=== PATIENT | female | born 1950 | race Caucasian/White ===

== ENCOUNTER → 2023-02-27 | Outpatient (CLI) | payer OTHER ==
[~2023-02-27] MED LIST: BAYER CHEWABLE81 MG PO; FURO40 PO; LISI5; METH10 PO; OLANZAPINE FLU; Oxycodone HCl20 M1 PO; Zanaflex4 MG
== END | disposition home or self-care (01) ==
LOC: LAB 15:13 → LAB SHORT 15:13
DX: N39.0 Urinary tract infection, site not specified (principal)
CPT/HCPCS: 87077; 87086; 87186

== ENCOUNTER 2024-09-26 11:00 | Inpatient (IN) | payer MEDICARE ==
[~2024-09-26] VITALS: Ht 165.1 cm; Wt 98.5 kg
[2024-09-26 11:18] LABS: BASOPHILS ABSOLUTE AUTO 0.07 K/mm3 (0.00-0.23); BASOPHILS PERCENT AUTO 1 % (0-2); EOSINOPHILS ABSOLUTE AUTO 0.22 K/mm3 (0.00-0.68); EOSINOPHILS PERCENT AUTO 2 % (0-6); Hematocrit 43.7 % (33.0-51.0); Hemoglobin 14.3 g/dL (11.5-16.0); IMMATURE GRAN ABSOLUTE AUTO 0.10 K/mm3 (0.00-0.10); IMMATURE GRAN PERCENT AUTO 1 % (0-1); LYMPHOCYTES ABSOLUTE AUTO 2.34 K/mm3 (0.84-5.20); LYMPHOCYTES PERCENT AUTO 18 % (21-46); MONOCYTES ABSOLUTE AUTO 0.83 K/mm3 (0.16-1.47); MONOCYTES PERCENT AUTO 6 % (4-13); Mean Corpuscular HGB Conc 32.7 g/dL (31.5-36.5); Mean Corpuscular Volume 86 fL (80-100); NEUTROPHILS ABSOLUTE AUTO 9.77 K/mm3 (1.96-9.15); NEUTROPHILS PERCENT AUTO 73 % (41-73); NRBC ABSOLUTE 0.00 K/mm3 (0.00-0.02); NRBC Auto 0.0 /100 WBC (0.0-0.2); Platelet Count 387 K/mm3 (150-400); RDW Coefficient Variation 14.5 % (11.7-14.2); RDW Standard Deviation 45.4 fL (35.1-46.3)
[2024-09-26 11:37] LABS: Alanine Aminotransfer (ALT/SGP 13.0 U/L (12-78); Albumin, Blood 3.0 g/dL (3.4-5.0); Albumin/Globulin Ratio 0.6 (0.8-1.8); Anion Gap 11.0 mmol/L (3-11); Aspartate Aminotrans (AST/SGOT 8.0 U/L (12-37); Bilirubin, Total 0.2 mg/dL (0.1-1.0); Blood Urea Nitrogen 10.0 mg/dL (8-24); CO2, Blood 28.0 mmol/L (21-32); Calcium, Blood 8.6 mg/dL (8.5-10.1); Chloride, Blood 101.0 mmol/L (98-108); Creatinine, Blood 0.7 mg/dL (0.40-1.00); Globulin, Blood 5.0 g/dL (2.2-4.0); Glucose, Blood 170.0 mg/dL (70-99); Potassium, Blood 3.6 mmol/L (3.5-5.5); Sodium, Blood 136.0 mmol/L (136-145); Total Protein, Blood 8.0 g/dL (6.4-8.2)
[2024-09-26] MEDS ORDERED: OxyCODONE 5 mg/Acetamin 325 mg TABLET PO ONE (13:20)
[2024-09-26] MEDS ORDERED: NS 1,000 ML IV SCH (13:30)
[2024-09-26] MEDS ORDERED: CefTRIAXone Sodium 1,000 MG in NS 50 ML IV ONE (13:30)
[2024-09-26] MEDS ORDERED: Morphine Sulfate 4 MG/1 ML Injection IV ONE (14:25)
[2024-09-26] MEDS ORDERED: Ipratropium/Albuterol SulF 2.5-0.5MG/3 ML Amp INH ONE (14:25)
[2024-09-26] MEDS ORDERED: Ondansetron HCl 2 MG / ML 2ML Vial IV PRN (15:30)
[2024-09-26] MEDS ORDERED: Metoprolol Tartrate 1 MG/ML 5 ML VIAL IV PRN (17:10)
[2024-09-26] MEDS ORDERED: Ipratropium/Albuterol SulF 2.5-0.5MG/3 ML Amp INH SCH (17:10)
[2024-09-26] MEDS ORDERED: HydrALAZINE HCl 20 MG / ML 1ML Vial IV PRN (17:15)
[2024-09-26 18:27] VITALS: BP 136/88
--- NOTE | 2024-09-26 18:35 | NUR ---
ADMISSION NOTE: PATIENT ARRIVED TO THE UNIT AT 181 VIA GURNEY. WITH ASSISTANCE TRANSFERRED INTO THE RESTROOM AND VOIDED. PATIENT VERY PAINFUL OF R HIP/LEG. PATIENT LABORED BREATHING. 2 L OF O2 IN PLACE. PATIENT SETTLED IN ROOM, IN BED, CALL LIGHT WITHIN REACH, NO SIGNS OR SYMPTOMS OF DISTRESS, PATIENT STATES BREATHING IS THE SAME IT HAS BEEN SINCE BEFORE SHE CAME INTO THE HOSPITAL. PLAN OF CARE ONGOING.
[2024-09-26] MEDS ORDERED: Albuterol 2.5 MG/3 ML VIAL INH PRN (19:10)
[2024-09-26 19:16] VITALS: BP 141/84
[2024-09-26] MEDS ORDERED: Lactobacil 2-S.Thermo-Bifido 1 1 Cap PO SCH (21:00)
[2024-09-26] MEDS ORDERED: IBUP200 PO (22:41)
--- NOTE | 2024-09-26 22:53 | NUR ---
PT HAS BEEN C/O PAIN IN LOWER BACK/RLE 10/19 THAT HAS NOT BEEN RELIEVED. CALLED HOSPITALIST FOR ORDERS FOR IBUPROFEN, WHICH SHE TAKES AT HOME. RECIEVED ORDERS.
[2024-09-26 23:08] VITALS: BP 150/104
[2024-09-27 03:35] VITALS: BP 142/101
[2024-09-27 04:41] LABS: Hematocrit 40.0 % (33.0-51.0); Hemoglobin 13.0 g/dL (11.5-16.0); Mean Corpuscular HGB Conc 32.5 g/dL (31.5-36.5); Mean Corpuscular Volume 88 fL (80-100); NRBC ABSOLUTE 0.00 K/mm3 (0.00-0.02); NRBC Auto 0.0 /100 WBC (0.0-0.2); Platelet Count 373 K/mm3 (150-400); RDW Coefficient Variation 14.4 % (11.7-14.2); RDW Standard Deviation 46.5 fL (35.1-46.3)
[2024-09-27 04:57] LABS: Anion Gap 8.0 mmol/L (3-11); Blood Urea Nitrogen 14.0 mg/dL (8-24); CO2, Blood 28.0 mmol/L (21-32); Calcium, Blood 8.5 mg/dL (8.5-10.1); Chloride, Blood 106.0 mmol/L (98-108); Creatinine, Blood 0.7 mg/dL (0.40-1.00); Glucose, Blood 182.0 mg/dL (70-99); Potassium, Blood 4.3 mmol/L (3.5-5.5); Sodium, Blood 138.0 mmol/L (136-145)
--- NOTE | 2024-09-27 05:58 | NUR ---
SHIFT SUMMARY PT HERE FOR SEPSIS AND PNA. SHE HAS BEEN AOX4, CALM AND COOPERATIVE. SHE HAS BEEN ON 2LNC, W/ 4LNC PRN AT HOME. PT HAS PERIODS OF DYSPNEA AT REST, THAT HAS BEEN EXACERBATED BY HER CHRONIC PAIN. PAIN HAS BEEN MANAGED W/ MEDICATIONS (SEE EMAR), REST, AND REPOSITIONING. PAIN HAS REMAINED 6-8/10 IN LOW BACK, RLE, AND HIPS. PT HAS BEEN 1PA W/ FWW TO BATHROOM, BUT HAS PREFERRED USING BSC, IT DOES NOT REQUIRE HER TO WALK FAR. PT ON TELE, W/ NO EVENTS OVERNIGHT. PT HAS HAD UNEVENTFUL NIGHT.
[2024-09-27 07:15] VITALS: BP 149/111
--- NOTE | 2024-09-27 07:24 | NUR ---
CONTACTED DR. GARCIA THIS MORNING REGARDING PATIENT'S PAIN AND WHAT CAN BE DONE/ORDERED FOR PAIN MANAGEMENT. PATIENT C/O PAIN IN LOWER BACK, R HIP/KNEE/LEG.
[2024-09-27] MEDS ORDERED: Enoxaparin 40 MG/0.4 ML SYR SC SCH (09:00)
[2024-09-27 11:02] VITALS: BP 155/106
[2024-09-27] MEDS ORDERED: CefTRIAXone Sodium 1,000 MG in NS 100 ML IV SCH (12:00)
[2024-09-27 15:33] VITALS: BP 174/97
--- NOTE | 2024-09-27 16:24 | NUR ---
SHIFT SUMMARY: PATIENT ON AND OFF OXYGEN DEPENDING ON HER MOOD. PATIENT LABILE. PAIN LEVEL VARIES ON WHEN STAFF ARE IN ROOM VERSUS OUT OF ROOM. UPSET THAT SHE ISN'T RECEIVING OPIATES OR OTHER PAIN MEDICATIONS OTHER THAN AVAILABLE PER EMAR. PATIENT HAS BEEN INDEPENDENTLY USING THE BEDSIDE COMMODE. SHE IS IN HER BED, ALERT, NO SIGNS OR SYMPTOMS OF DISTRESS, PLAN OF CARE ONGOING.
[2024-09-27 19:12] VITALS: BP 149/112
[2024-09-27 23:00] VITALS: BP 153/129
[2024-09-28] VITALS (7 sets, daily range): BP systolic 151–168; BP diastolic 108–121
[2024-09-28 05:00] LABS: BASOPHILS ABSOLUTE AUTO 0.06 K/mm3 (0.00-0.23); BASOPHILS PERCENT AUTO 1 % (0-2); EOSINOPHILS ABSOLUTE AUTO 0.12 K/mm3 (0.00-0.68); EOSINOPHILS PERCENT AUTO 1 % (0-6); Hematocrit 37.3 % (33.0-51.0); Hemoglobin 12.1 g/dL (11.5-16.0); IMMATURE GRAN ABSOLUTE AUTO 0.09 K/mm3 (0.00-0.10); IMMATURE GRAN PERCENT AUTO 1 % (0-1); LYMPHOCYTES ABSOLUTE AUTO 2.69 K/mm3 (0.84-5.20); LYMPHOCYTES PERCENT AUTO 21 % (21-46); MONOCYTES ABSOLUTE AUTO 0.91 K/mm3 (0.16-1.47); MONOCYTES PERCENT AUTO 7 % (4-13); Mean Corpuscular HGB Conc 32.4 g/dL (31.5-36.5); Mean Corpuscular Volume 87 fL (80-100); NEUTROPHILS ABSOLUTE AUTO 9.18 K/mm3 (1.96-9.15); NEUTROPHILS PERCENT AUTO 70 % (41-73); NRBC ABSOLUTE 0.00 K/mm3 (0.00-0.02); NRBC Auto 0.0 /100 WBC (0.0-0.2); Platelet Count 364 K/mm3 (150-400); RDW Coefficient Variation 14.5 % (11.7-14.2); RDW Standard Deviation 46.3 fL (35.1-46.3)
[2024-09-28 05:15] LABS: Anion Gap 8.0 mmol/L (3-11); Blood Urea Nitrogen 16.0 mg/dL (8-24); CO2, Blood 30.0 mmol/L (21-32); Calcium, Blood 8.6 mg/dL (8.5-10.1); Chloride, Blood 106.0 mmol/L (98-108); Creatinine, Blood 0.72 mg/dL (0.40-1.00); Glucose, Blood 204.0 mg/dL (70-99); Potassium, Blood 3.3 mmol/L (3.5-5.5); Sodium, Blood 141.0 mmol/L (136-145)
--- NOTE | 2024-09-28 07:27 | NUR ---
SHIFT SUMMARY PT HERE FOR PNA. SHE HAS BEEN AOX4, CALM AND COOPERATIVE. SHE HAS BEEN C/O OF CHRONIC PAIN IN LOW BACK, R LEG, AND R HIP. SHE STATES THERE HAS BEEN NO RELIEF FOR IT SO FAR. PT HAS BEEN FRUSTRATED W/ HER PAIN REGIMEN AND HAS LASHED OUT AT STAFF FOR BEING UNABLE TO GET "ANYTHING OTHER THAN TYLENOL." PT HAS BEEN RESTING COMFORATABLY IN BED, AND HAS BEEN ABLE TO PIVOT TO BSC INDEPENDENTLY. SHE HAS BEEN ON TELE, NO EVENTS OVERNIGHT. SHE HAS BEEN ON 2LNC, SATURATING >90%. PT HAD UNEVENTFUL NIGHT.
[2024-09-28] MEDS ORDERED: DULoxetine HCL 30 MG Cap DR PO SCH (09:00)
--- NOTE | 2024-09-28 16:09 | NUR ---
SHIFT SUMMARY PATIENT A/O X4. ABLE TO USE BSC INDEPENDENTLY, SOME INCONTINENCE AT TIMES. CONTINUAL COMPLAINTS OF PAIN, ADRESSED WITH DR GARCIA THIS AM. ONE EPISODE OF VOMITING AFTER BREAKFAST. PATIENT HAVING CONVERSATION WITH SOMEONE ON SPEAKERPHONE, ASKING THEM TO BRING HER "PAIN DROPS FROM THE [employer]" (WHICH IS A [employer]), STATING SHE ISN'T GOING TO TELL STAFF BECAUSE "THEY WON'T LET ME HAVE THEM". THIS RN EDUCATED PATIENT AND PERSON ON PHONE THAT SHE IS NOT ALLOWED ANY SUBSTANCES WHILE ADMITTED AND IS NOT PERMITTED TO TAKE MEDICATIONS WITHOUT DR HENDERSON WHILE ADMITTED, ADVISED PERSON ON PHONE TO NOT BRING HER ANY SUBSTANCES FROM [employer]. WHEN RN LEFT, PATIENT STATED LOUDLY THAT SHE "GOT BUSTED" AND DIDN'T CARE, THAT SHE WOULD TAKE THEM AND JUST NOT TELL US. CHARGE AND AIDE MADE AWARE. ABLE TO MAKE NEEDS KNOWN. CALL LIGHT IN REACH, CARES ONGOING.
--- NOTE | 2024-09-29 03:05 | NUR ---
SHIFT SUMMARY NO ACUTE EVENTS DURING THIS SHIFT. PT C/O 8/0 CHRONIC LOW BACK PAIN, AND RIGHT HIP PAIN. PT REPORT HX FALLING ON THE RIGHT HIP. TELE: SINUS TACH @107. PT DENIES CP/PRESSURE DUROMG THIS SHIFT. PT IS ON RA, O2 SAT'S>95%. MULTIPLE CALLS WITH CALL LIGHT, AND CONTINUING TO MEDICATE THE PAIN PER EMAR DURING THE NIGHT. BED AT THE LOWEST POSITION, CALL LIGHT W/I REACH. PT IS A/O X4, ABLE TO MAKE HER NEEDS KNOWN.
[2024-09-29 03:52] VITALS: BP 149/105
[2024-09-29 05:06] LABS: BASOPHILS ABSOLUTE AUTO 0.04 K/mm3 (0.00-0.23); BASOPHILS PERCENT AUTO 0 % (0-2); EOSINOPHILS ABSOLUTE AUTO 0.02 K/mm3 (0.00-0.68); EOSINOPHILS PERCENT AUTO 0 % (0-6); Hematocrit 44.4 % (33.0-51.0); Hemoglobin 14.5 g/dL (11.5-16.0); IMMATURE GRAN ABSOLUTE AUTO 0.14 K/mm3 (0.00-0.10); IMMATURE GRAN PERCENT AUTO 1 % (0-1); LYMPHOCYTES ABSOLUTE AUTO 2.50 K/mm3 (0.84-5.20); LYMPHOCYTES PERCENT AUTO 14 % (21-46); MONOCYTES ABSOLUTE AUTO 0.89 K/mm3 (0.16-1.47); MONOCYTES PERCENT AUTO 5 % (4-13); Mean Corpuscular HGB Conc 32.7 g/dL (31.5-36.5); Mean Corpuscular Volume 87 fL (80-100); NEUTROPHILS ABSOLUTE AUTO 14.11 K/mm3 (1.96-9.15); NEUTROPHILS PERCENT AUTO 80 % (41-73); NRBC ABSOLUTE 0.00 K/mm3 (0.00-0.02); NRBC Auto 0.0 /100 WBC (0.0-0.2); Platelet Count 453 K/mm3 (150-400); RDW Coefficient Variation 14.7 % (11.7-14.2); RDW Standard Deviation 46.6 fL (35.1-46.3)
[2024-09-29 05:29] LABS: Anion Gap 10.0 mmol/L (3-11); Blood Urea Nitrogen 19.0 mg/dL (8-24); CO2, Blood 27.0 mmol/L (21-32); Calcium, Blood 9.5 mg/dL (8.5-10.1); Chloride, Blood 102.0 mmol/L (98-108); Creatinine, Blood 0.68 mg/dL (0.40-1.00); Glucose, Blood 231.0 mg/dL (70-99); Potassium, Blood 4.0 mmol/L (3.5-5.5); Sodium, Blood 135.0 mmol/L (136-145)
[2024-09-29 07:34] VITALS: BP 150/104
[2024-09-29 09:45] VITALS: BP 148/84
[2024-09-29 10:49] LABS: Anion Gap 9.0 mmol/L (3-11); Blood Urea Nitrogen 19.0 mg/dL (8-24); CO2, Blood 33.0 mmol/L (21-32); Calcium, Blood 9.7 mg/dL (8.5-10.1); Chloride, Blood 98.0 mmol/L (98-108); Creatinine, Blood 0.71 mg/dL (0.40-1.00); Glucose, Blood 177.0 mg/dL (70-99); Potassium, Blood 3.5 mmol/L (3.5-5.5); Sodium, Blood 136.0 mmol/L (136-145)
--- NOTE | 2024-09-29 16:30 | NUR ---
SHIFT SUMMARY PATIENT HAS BEEN REPORTING 10/10 PAIN, NO INTERVENTIONS SEEM TO HELP. NEW ORDER FOR TRAMADOL RECEIVED AND GIVEN WITH NO DECREASE IN REPORTED PAIN. ABLE TO GET UP TO BSC INDEPENDENT TO 1 ASSIST AT TIMES. CALL LIGHT IN REACH, ABLE TO MAKE NEEDS KNOWN.
[2024-09-29 16:38] VITALS: BP 145/109
--- NOTE | 2024-09-29 17:42 | NUR ---
BLOOD PRESSURES MAY NOT REFLECT ACTUAL, PATIENT ENCOURAGED TO BE STILL. WHEN STAFF ENTER ROOM PATIENT BEGINS TO MOAN AND WIGGLE IN BED, WILL NOT LIE STILL FOR VITALS TO BE TAKEN ACCURATELY.
[2024-09-29 19:43] VITALS: BP 136/118
[2024-09-29 19:46] VITALS: BP 143/101
[2024-09-30 02:24] VITALS: BP 137/95
--- NOTE | 2024-09-30 04:38 | NUR ---
SHIFT SUMMARY: PT AOX4 CALLS APPROPRIATELY AND ABLE TO MAKE NEEDS KNOWN. PT CONTINUES TO CALL AND REQUEST PAIN MEDICATIONS/ MUSCLE RELAXERS AND OF CHRONIC PAIN. MEDICATED PER EMR. TOLERATING MEDICATIONS WELL. NO ACUTE OVERNIGHT EVENTS. PT IN BED RESTING, BED IN LOWEST POSITION, CALL LIGHT IN REACH. CONTINUING CARE.
[2024-09-30 05:11] LABS: BASOPHILS ABSOLUTE AUTO 0.09 K/mm3 (0.00-0.23); BASOPHILS PERCENT AUTO 1 % (0-2); EOSINOPHILS ABSOLUTE AUTO 0.19 K/mm3 (0.00-0.68); EOSINOPHILS PERCENT AUTO 1 % (0-6); Hematocrit 44.6 % (33.0-51.0); Hemoglobin 14.6 g/dL (11.5-16.0); IMMATURE GRAN ABSOLUTE AUTO 0.18 K/mm3 (0.00-0.10); IMMATURE GRAN PERCENT AUTO 1 % (0-1); LYMPHOCYTES ABSOLUTE AUTO 3.46 K/mm3 (0.84-5.20); LYMPHOCYTES PERCENT AUTO 18 % (21-46); MONOCYTES ABSOLUTE AUTO 1.54 K/mm3 (0.16-1.47); MONOCYTES PERCENT AUTO 8 % (4-13); Mean Corpuscular HGB Conc 32.7 g/dL (31.5-36.5); Mean Corpuscular Volume 88 fL (80-100); NEUTROPHILS ABSOLUTE AUTO 13.59 K/mm3 (1.96-9.15); NEUTROPHILS PERCENT AUTO 71 % (41-73); NRBC ABSOLUTE 0.00 K/mm3 (0.00-0.02); NRBC Auto 0.0 /100 WBC (0.0-0.2); Platelet Count 409 K/mm3 (150-400); RDW Coefficient Variation 15.0 % (11.7-14.2); RDW Standard Deviation 47.6 fL (35.1-46.3)
[2024-09-30 07:47] VITALS: BP 119/83
[2024-09-30] MEDS ORDERED: Ketorolac Tromethamine 15mg Vial IV PRN (11:50)
[2024-09-30 16:08] VITALS: BP 118/91
--- NOTE | 2024-09-30 18:02 | NUR ---
SHIFT SUMMARY PT CONT LEVEL OF CARE. PT NOTED TO BE A&O X4 AND CALLS APPROPRIATE. PT NOTED TO CONT TO HAVE DIFFICULTY WITH CHRONIC PAIN CONTROL RECEIVED NEW ORDER FOR PRN YUE SEE MAR FOR MORE DETAILS ON PAIN MANAGEMENT AND ADMINISTRATION. PT STARTED TO WORK WITH THERAPY THIS SHIFT. CONT TO UTILIZE OXYGEN.
[2024-09-30 19:39] VITALS: BP 104/84; BP 94/84
--- NOTE | 2024-10-01 01:59 | NUR ---
SHIFT SUMMARY: PT RESTING MOST OF THE NIGHT. MEDICATED PER EMAR. NO ACUTE CHANGES THIS SHIFT. BED IN LOWEST POSITION AND CALL LIGHT IN REACH.
[2024-10-01 04:29] VITALS: BP 130/83
[2024-10-01 05:22] LABS: BASOPHILS ABSOLUTE AUTO 0.06 K/mm3 (0.00-0.23); BASOPHILS PERCENT AUTO 0 % (0-2); EOSINOPHILS ABSOLUTE AUTO 0.26 K/mm3 (0.00-0.68); EOSINOPHILS PERCENT AUTO 1 % (0-6); Hematocrit 44.4 % (33.0-51.0); Hemoglobin 14.2 g/dL (11.5-16.0); IMMATURE GRAN ABSOLUTE AUTO 0.24 K/mm3 (0.00-0.10); IMMATURE GRAN PERCENT AUTO 1 % (0-1); LYMPHOCYTES ABSOLUTE AUTO 4.22 K/mm3 (0.84-5.20); LYMPHOCYTES PERCENT AUTO 21 % (21-46); MONOCYTES ABSOLUTE AUTO 1.58 K/mm3 (0.16-1.47); MONOCYTES PERCENT AUTO 8 % (4-13); Mean Corpuscular HGB Conc 32.0 g/dL (31.5-36.5); Mean Corpuscular Volume 90 fL (80-100); NEUTROPHILS ABSOLUTE AUTO 14.14 K/mm3 (1.96-9.15); NEUTROPHILS PERCENT AUTO 69 % (41-73); NRBC ABSOLUTE 0.00 K/mm3 (0.00-0.02); NRBC Auto 0.0 /100 WBC (0.0-0.2); Platelet Count 399 K/mm3 (150-400); RDW Coefficient Variation 15.1 % (11.7-14.2); RDW Standard Deviation 49.4 fL (35.1-46.3)
[2024-10-01 05:41] LABS: Anion Gap 7.0 mmol/L (3-11); Blood Urea Nitrogen 42.0 mg/dL (8-24); CO2, Blood 30.0 mmol/L (21-32); Calcium, Blood 9.0 mg/dL (8.5-10.1); Chloride, Blood 102.0 mmol/L (98-108); Creatinine, Blood 0.9 mg/dL (0.40-1.00); Glucose, Blood 148.0 mg/dL (70-99); Potassium, Blood 3.8 mmol/L (3.5-5.5); Sodium, Blood 135.0 mmol/L (136-145)
[2024-10-01 07:29] VITALS: BP 136/103
[2024-10-01] MEDS ORDERED: Doxycycline Hyclate 100 MG in Dextrose 5% 250 ML IV SCH (16:00)
[2024-10-01 16:42] VITALS: BP 133/91
[2024-10-01 19:35] VITALS: BP 132/93
--- NOTE | 2024-10-01 19:44 | NUR ---
SHIFT SUMMARY- PT ALERT AND ORIENTED X3. SHE IS A 1P SBA TO THE BATHROOM OR BSC. PT IV WAS LEAKING AFTER IV ABX WERE STARTED AND NEW IV WAS PLACED. PT WORKED WITH THERAPIES AND N REPEAT CHEST XR WAS DONE. DR RHODES (PULMONOLOGY) CAME TO SEE THE PT FOR A NEW CONSULT TODAY AND OREDERED NEW LABS. PT AWARE A SPUTUM AND A URINE SAMPLE ARE NEEDED, PASSED ON TO NIGHT RN IN BEDSIDE REPORT. PT IN BED, CALL LIGHT IN REACH NO S&S OF DDISTRESS NOTED AT THE TIME OF SHIFT CHANGE.
--- NOTE | 2024-10-02 02:37 | NUR ---
SHIFT SUMMARY: PT RESTING THROUGH OUT SHIFT. MEDICATED PER EMAR. NO ACUTE CHANGES DURING THIS SHIFT.
[2024-10-02 03:56] VITALS: BP 125/91
[2024-10-02 05:11] LABS: BASOPHILS ABSOLUTE AUTO 0.09 K/mm3 (0.00-0.23); BASOPHILS PERCENT AUTO 1 % (0-2); EOSINOPHILS ABSOLUTE AUTO 0.26 K/mm3 (0.00-0.68); EOSINOPHILS PERCENT AUTO 2 % (0-6); Hematocrit 40.9 % (33.0-51.0); Hemoglobin 13.0 g/dL (11.5-16.0); IMMATURE GRAN ABSOLUTE AUTO 0.22 K/mm3 (0.00-0.10); IMMATURE GRAN PERCENT AUTO 1 % (0-1); LYMPHOCYTES ABSOLUTE AUTO 3.80 K/mm3 (0.84-5.20); LYMPHOCYTES PERCENT AUTO 21 % (21-46); MONOCYTES ABSOLUTE AUTO 1.23 K/mm3 (0.16-1.47); MONOCYTES PERCENT AUTO 7 % (4-13); Mean Corpuscular HGB Conc 31.8 g/dL (31.5-36.5); Mean Corpuscular Volume 88 fL (80-100); NEUTROPHILS ABSOLUTE AUTO 12.20 K/mm3 (1.96-9.15); NEUTROPHILS PERCENT AUTO 69 % (41-73); NRBC ABSOLUTE 0.00 K/mm3 (0.00-0.02); NRBC Auto 0.0 /100 WBC (0.0-0.2); Platelet Count 374 K/mm3 (150-400); RDW Coefficient Variation 14.9 % (11.7-14.2); RDW Standard Deviation 48.3 fL (35.1-46.3)
[2024-10-02 05:22] LABS: Anion Gap 7.0 mmol/L (3-11); Blood Urea Nitrogen 32.0 mg/dL (8-24); CO2, Blood 28.0 mmol/L (21-32); Calcium, Blood 8.4 mg/dL (8.5-10.1); Chloride, Blood 104.0 mmol/L (98-108); Creatinine, Blood 0.66 mg/dL (0.40-1.00); Glucose, Blood 153.0 mg/dL (70-99); Potassium, Blood 4.2 mmol/L (3.5-5.5); Sodium, Blood 135.0 mmol/L (136-145)
[2024-10-02 07:37] VITALS: BP 136/88
[2024-10-02 10:54] VITALS: BP 135/83
--- NOTE | 2024-10-02 17:43 | NUR ---
SHIFT SUMMARY- PT ALERT AND ORIENTED, SHE CAN GET CRAANKY, IF THERE ARE ANY BEEPS FROM THE PUMP 1 MINUTE OR 1 HOUR MAKES NO DIFFERENCE WITH HOW MAD SHE GETS. THE PO STEROIDS SEEM TO BE CAUSEING SOME EXTREME SNACKING. AT ONE POINT SHE ASKED FOR ICECREAM, SHERBERT, KEM CRACKERS, AND POP TARTS. PT HAS BEEN MEDICATED FOR PAIN T/O THJE SHIFT. SHE GETS ANGRY WHEN STAFF ARE NOT THERE WITH THE PAIN MEDS WHEN SHE WANTS THEM TO BE, AAND STATES THEY ARE 45 MINUTES LATE OR 1 HOUR LATE. THIS RN EXPLAINED THAT THESE ARE PRN MEDS SO SHE HAS TO REQUEST THEM FOR STAFF TO BRING THEM, AND SHE CAN NOT REQUEST THEM 4 HOURS BEFORE THEY ARE AVAILABLE AND EXPECT THE STAFF TO REMEMBER. SHE WAS AGREEABLE AND SHE WILL TRY TO REMEMBER TO REQUEST THEM A SECOND TIME AFTER THEY ARE AVAILABLE. PT MEDICATED WITH PO TRAMADOL AND TYLENOL AT 1745. SHE IS CURRENTLY SITTING UP IN BED EATING SNACKS. PLAN IS FOR SNF AT [facility]. IV WENT BAD AGAIN TODAY PG WAS PLACED THAT DRAWS. NO CURRENT S&S OF DISTRESS NOTED.
[2024-10-02 19:28] VITALS: BP 121/73
[2024-10-03 04:00] VITALS: BP 115/73
[2024-10-03 04:57] LABS: BASOPHILS ABSOLUTE AUTO 0.09 K/mm3 (0.00-0.23); BASOPHILS PERCENT AUTO 1 % (0-2); EOSINOPHILS ABSOLUTE AUTO 0.26 K/mm3 (0.00-0.68); EOSINOPHILS PERCENT AUTO 1 % (0-6); Hematocrit 38.0 % (33.0-51.0); Hemoglobin 11.8 g/dL (11.5-16.0); IMMATURE GRAN ABSOLUTE AUTO 0.30 K/mm3 (0.00-0.10); IMMATURE GRAN PERCENT AUTO 2 % (0-1); LYMPHOCYTES ABSOLUTE AUTO 4.10 K/mm3 (0.84-5.20); LYMPHOCYTES PERCENT AUTO 22 % (21-46); MONOCYTES ABSOLUTE AUTO 1.19 K/mm3 (0.16-1.47); MONOCYTES PERCENT AUTO 6 % (4-13); Mean Corpuscular HGB Conc 31.1 g/dL (31.5-36.5); Mean Corpuscular Volume 90 fL (80-100); NEUTROPHILS ABSOLUTE AUTO 12.91 K/mm3 (1.96-9.15); NEUTROPHILS PERCENT AUTO 68 % (41-73); NRBC ABSOLUTE 0.00 K/mm3 (0.00-0.02); NRBC Auto 0.0 /100 WBC (0.0-0.2); Platelet Count 357 K/mm3 (150-400); RDW Coefficient Variation 14.8 % (11.7-14.2); RDW Standard Deviation 48.3 fL (35.1-46.3)
[2024-10-03 05:19] LABS: Anion Gap 7.0 mmol/L (3-11); Blood Urea Nitrogen 30.0 mg/dL (8-24); CO2, Blood 27.0 mmol/L (21-32); Calcium, Blood 8.2 mg/dL (8.5-10.1); Chloride, Blood 104.0 mmol/L (98-108); Creatinine, Blood 0.62 mg/dL (0.40-1.00); Glucose, Blood 253.0 mg/dL (70-99); Potassium, Blood 4.2 mmol/L (3.5-5.5); Sodium, Blood 134.0 mmol/L (136-145)
--- NOTE | 2024-10-03 06:24 | NUR ---
SHIFT SUMMARY PT SLEPT INTERMITTENTLY DURING THE NIGHT. C/O CONTINUED PAIN TO LOW BACK, HIPS, AND KNEES. MEDICATED PER EMAR. PT REMAINED ON ROOM AIR. OOB TO BSC WITH 1 MIN ASSIST. IV ANTIBIOTICS CONTINUE PER ORDER.
[2024-10-03 07:57] VITALS: BP 119/86
[2024-10-03] MEDS ORDERED: NS 250 ML IV PRN (10:25)
[2024-10-03] MEDS ORDERED: Ipratropium/Albuterol SulF 2.5-0.5MG/3 ML Amp INH SCH (16:00)
[2024-10-03] MEDS ORDERED: Insulin Regular 100 UNIT/ML 10ML Vial SC SCH (16:30)
[2024-10-03 17:12] VITALS: BP 149/109
[2024-10-03 18:10] VITALS: BP 131/85
--- NOTE | 2024-10-03 18:49 | NUR ---
SHIFT SUMMARY PT A&OX4. PT ADMITTED DUE TO CHEST PAIN/WEAKNESS/SOB. PT REPORTS NO CHEST PAIN. PT REPORTS WEAKNESS AND SOB. UNABLE TO COLLECT SPUTUM SAMPLE. PT REPORTS "UNABLE TO COUGH STUFF UP." VSS. PT REPORTS PAIN, PAIN MANAGED PER EMAR. THIS RN NOTICED TRENDS OF GLUCOSE. REPORTED TO DR RAMIREZ, MORNING GLUCOSE WITH LABS WAS ABOVE 200, PT GETTING STEROIDS. DR. RAMIREZ ORDERED ACHS CBG, WITH SLIDING SCALE INSULIN. PT GOT CHEST PHYSIOTHERAPY TODAY. RESPIRATORY TREATMENTS GIVEN TO PT BY RESPIRATORY THERAPY, PT WORKED WITH PHYSICAL THERAPY TODAY AND IS A ONE ASSIST TO BSC. PT IN BED, BED IN LOWEST POSITION, CALL LIGHT IN REACH. PLAN IS SNF POST DISCHARGE.
--- NOTE | 2024-10-03 18:57 | NUR ---
NOTE REPORTED PT CHEST XRAY RESULTS TO DR RAMIREZ.
[2024-10-03 20:05] VITALS: BP 99/80
[2024-10-04 04:23] VITALS: BP 116/73
[2024-10-04 05:03] LABS: BASOPHILS ABSOLUTE AUTO 0.10 K/mm3 (0.00-0.23); BASOPHILS PERCENT AUTO 1 % (0-2); EOSINOPHILS ABSOLUTE AUTO 0.28 K/mm3 (0.00-0.68); EOSINOPHILS PERCENT AUTO 1 % (0-6); Hematocrit 40.1 % (33.0-51.0); Hemoglobin 12.5 g/dL (11.5-16.0); IMMATURE GRAN ABSOLUTE AUTO 0.45 K/mm3 (0.00-0.10); IMMATURE GRAN PERCENT AUTO 2 % (0-1); LYMPHOCYTES ABSOLUTE AUTO 4.89 K/mm3 (0.84-5.20); LYMPHOCYTES PERCENT AUTO 23 % (21-46); MONOCYTES ABSOLUTE AUTO 1.35 K/mm3 (0.16-1.47); MONOCYTES PERCENT AUTO 6 % (4-13); Mean Corpuscular HGB Conc 31.2 g/dL (31.5-36.5); Mean Corpuscular Volume 89 fL (80-100); NEUTROPHILS ABSOLUTE AUTO 14.11 K/mm3 (1.96-9.15); NEUTROPHILS PERCENT AUTO 67 % (41-73); NRBC ABSOLUTE 0.00 K/mm3 (0.00-0.02); NRBC Auto 0.0 /100 WBC (0.0-0.2); Platelet Count 429 K/mm3 (150-400); RDW Coefficient Variation 14.9 % (11.7-14.2); RDW Standard Deviation 48.7 fL (35.1-46.3)
[2024-10-04 05:25] LABS: Anion Gap 4.0 mmol/L (3-11); Blood Urea Nitrogen 31.0 mg/dL (8-24); CO2, Blood 32.0 mmol/L (21-32); Calcium, Blood 8.8 mg/dL (8.5-10.1); Chloride, Blood 102.0 mmol/L (98-108); Creatinine, Blood 0.73 mg/dL (0.40-1.00); Glucose, Blood 130.0 mg/dL (70-99); Potassium, Blood 4.2 mmol/L (3.5-5.5); Sodium, Blood 134.0 mmol/L (136-145)
--- NOTE | 2024-10-04 05:30 | NUR ---
SHIFT SUMMARY NOC PT A/O X 4. PLEASANT AND COOPERATIVE WITH CARE. PT HAD SOFTER THAN NORMAL BP AT BEGINNING OF SHIFT 99/80 WITH MAP (86). AM BP IMPROVED TO 118/73. WBC TRENDING UP OVER PAST 2 DAYS NOW AT 21.18. PT CHRONIC PAIN SYNDROME BEING MANAGED PER EMAR WELL IV ABX. PT REMAINED ON RA T/O SHIFT AND SPO2 >92%. PT AWAITING SNF PLACEMENT WITH REFERRAL SENT TO [facility]. PT CURRENTLY RESTING WITH BED IN LOWEST POSITION, AND CALL LIGHT WITHIN REACH.
[2024-10-04 08:04] VITALS: BP 117/78
[2024-10-04 13:43] LABS: Acinetobacter baumannii DNA Not Detected copy/mL (NOT DETECT); Chlamydia pneumonia Not Detected (NOT DETECT); Enterobacter cloacae DNA Not Detected copy/mL (NOT DETECT); Escherichia coli DNA Not Detected copy/mL (NOT DETECT); Haemophilus influenzae DNA Not Detected copy/mL (NOT DETECT); Human Coronavirus RNA Not Detected (NOT DETECT); Human Metapneumovirus RNA Not Detected (NOT DETECT); Influenza virus A RNA Not Detected (NOT DETECT); Influenza virus B RNA Not Detected (NOT DETECT); Klebsiella aerogenes DNA Not Detected copy/mL (NOT DETECT); Klebsiella oxytoca DNA Not Detected copy/mL (NOT DETECT); Klebsiella pneumoniae DNA Not Detected copy/mL (NOT DETECT); Moraxella catarrhalis DNA Not Detected copy/mL (NOT DETECT); Proteus sp DNA Not Detected copy/mL (NOT DETECT); Pseudomonas aeruginosa DNA Not Detected copy/mL (NOT DETECT); Respiratory syncytial Vir RNA Not Detected (NOT DETECT); Rhinovirus+Enterovirus RNA Not Detected (NOT DETECT); Serratia marcescens DNA Not Detected copy/mL (NOT DETECT); Staphylococcus aureus DNA Not Detected copy/mL (NOT DETECT); Streptococcus agalactiae DNA Not Detected copy/mL (NOT DETECT); Streptococcus pneumoniae DNA Not Detected copy/mL (NOT DETECT); Streptococcus pyogenes DNA Not Detected copy/mL (NOT DETECT)
--- NOTE | 2024-10-04 18:19 | NUR ---
End of shift summary: Patient is alert and oriented x4; pleasant and cooperative with care. Patient with chronic pain to back and requests medications every 6 hours; medicated per EMAR. Patient denies CP, N/V/D, but does have continued SOB d/t pneumonia. Patient continues to be seen and treated by Respiratory Therapy. Patient up to BSC independently today. All medications administered per EMAR. Patient utilizing call light appropriately; call light within reach and bed in lowest position. Will continue to monitor until next shift nurse arrives and report given.
[2024-10-04 19:38] VITALS: BP 115/76
[2024-10-05 03:58] VITALS: BP 113/73
[2024-10-05 04:58] LABS: BASOPHILS ABSOLUTE AUTO 0.10 K/mm3 (0.00-0.23); BASOPHILS PERCENT AUTO 1 % (0-2); EOSINOPHILS ABSOLUTE AUTO 0.25 K/mm3 (0.00-0.68); EOSINOPHILS PERCENT AUTO 1 % (0-6); Hematocrit 36.7 % (33.0-51.0); Hemoglobin 11.7 g/dL (11.5-16.0); IMMATURE GRAN ABSOLUTE AUTO 0.64 K/mm3 (0.00-0.10); IMMATURE GRAN PERCENT AUTO 3 % (0-1); LYMPHOCYTES ABSOLUTE AUTO 5.45 K/mm3 (0.84-5.20); LYMPHOCYTES PERCENT AUTO 26 % (21-46); MONOCYTES ABSOLUTE AUTO 1.48 K/mm3 (0.16-1.47); MONOCYTES PERCENT AUTO 7 % (4-13); Mean Corpuscular HGB Conc 31.9 g/dL (31.5-36.5); Mean Corpuscular Volume 89 fL (80-100); NEUTROPHILS ABSOLUTE AUTO 12.99 K/mm3 (1.96-9.15); NEUTROPHILS PERCENT AUTO 62 % (41-73); NRBC ABSOLUTE 0.00 K/mm3 (0.00-0.02); NRBC Auto 0.0 /100 WBC (0.0-0.2); Platelet Count 384 K/mm3 (150-400); RDW Coefficient Variation 15.3 % (11.7-14.2); RDW Standard Deviation 49.7 fL (35.1-46.3)
[2024-10-05 05:20] LABS: Anion Gap 7.0 mmol/L (3-11); Blood Urea Nitrogen 30.0 mg/dL (8-24); CO2, Blood 28.0 mmol/L (21-32); Calcium, Blood 8.4 mg/dL (8.5-10.1); Chloride, Blood 102.0 mmol/L (98-108); Creatinine, Blood 0.62 mg/dL (0.40-1.00); Glucose, Blood 161.0 mg/dL (70-99); Potassium, Blood 4.4 mmol/L (3.5-5.5); Sodium, Blood 133.0 mmol/L (136-145)
--- NOTE | 2024-10-05 05:36 | NUR ---
SHIFT SUMMARY NOC PT A/O X 4. PLEASANT AND COOPERATIVE WITH CARE. HS CBG 236 NO COVERAGE ORDERED HS. PT STILL HAVING C/O OF DYSPNEA WITH AMBULATION AND RECEIVING BREATHING TX PER EMAR. PT ALSO ENDORES SEVERE R HIP PAIN AND HAS CONCERNS OF POSSIBLE FX AND IS WANTING IMAGING TO BE DONE. PT RECEIVING IV ABX PER EMAR, WBC 20.91 THIS AM TRENDING BACK DOWN. POWERGLICE IN KELLY DOES NOT DRAW. PT AWAITING SNF PLACEMENT AT [facility] UPON APPROVAL. PT CURRENTLY RESTING WITH BED IN LOWEST POSITION, AND CALL LIGHT WITHIN REACH.
[2024-10-05 07:40] VITALS: BP 131/85
[2024-10-05 15:49] VITALS: BP 103/65
--- NOTE | 2024-10-05 17:45 | NUR ---
End of shift summary: Patient is alert and oriented x4; pleasant and cooperative with care. Patient with x-ray to right hip completed today per discussion with doctor. Patient with continued pain today and medications administered per EMAR; new order obtained for additional pain control. Patient denied CP, N/V/D but with continued SOB and has been receiving respiratory treatments with good results. Patient utilizing call light appropriately; call light within reach and bed in lowest position. Will continue to monitor until next shift nurse arrives and report is given.
[2024-10-05 18:59] VITALS: BP 104/69
[2024-10-06 04:35] VITALS: BP 113/76
[2024-10-06 05:00] LABS: Hematocrit 38.1 % (33.0-51.0); Hemoglobin 12.3 g/dL (11.5-16.0); Mean Corpuscular HGB Conc 32.3 g/dL (31.5-36.5); Mean Corpuscular Volume 89 fL (80-100); NRBC ABSOLUTE 0.00 K/mm3 (0.00-0.02); NRBC Auto 0.0 /100 WBC (0.0-0.2); Platelet Count 375 K/mm3 (150-400); RDW Coefficient Variation 15.5 % (11.7-14.2); RDW Standard Deviation 50.1 fL (35.1-46.3)
[2024-10-06 05:16] LABS: Anion Gap 7.0 mmol/L (3-11); Blood Urea Nitrogen 27.0 mg/dL (8-24); CO2, Blood 30.0 mmol/L (21-32); Calcium, Blood 8.6 mg/dL (8.5-10.1); Chloride, Blood 101.0 mmol/L (98-108); Creatinine, Blood 0.68 mg/dL (0.40-1.00); Glucose, Blood 122.0 mg/dL (70-99); Potassium, Blood 4.5 mmol/L (3.5-5.5); Sodium, Blood 133.0 mmol/L (136-145)
--- NOTE | 2024-10-06 05:33 | NUR ---
SHIFT SUMMARY NOC PT A/O X 4. PLEASANT AND COOPERATIVE WITH CARE. VSS. HS CBG 155 WITH NO HS COVERAGE IN PLACE. CHRONIC PAIN SYNROME/ANXIETY BEING MANAGED PER EMAR. IV ABX PER EMAR, WBC 21.67 TRENDING BACK UP AGAIN THIS AM. POWERGLIDE IN KELLY DOES NOT DRAW. PT STILL ENDORSING SOB WITH AMBULATION, BUT REPORTS THAT IT LESS SEVERE THAN PREVIOUS DAY. PT AWAITING SNF PLACEMENT @ [facility]. PT CURRENTLY RESTING WITH BED IN LOWEST POSITION, AND CALL LIGHT WITHIN REACH.
--- NOTE | 2024-10-06 05:33 | NUR ---
SHIFT SUMMARY NOC PT A/O X 4. LABILE AT TIMES, BUT COOPERATIVE WITH CARE. VSS. NO ACUTE CHANGES TO REPORT. PT GENERALIZED PAIN BEING MANAGED PER EMAR. WOUND DRESSING ON L FOOT CHANGED THIS MORNING AND C/D/I. PT HAD BM AT BEGINNING OF SHIFT. PT IN PROCESS OF FINDING CARE HOME AND SETTING UP OUT PATIENT WOUND CARE, WELL SNF PLACEMENT FOR [facility]. PT CURRENTLY RESTING WITH BED IN LOWEST POSITION, AND CALL LIGHT WITHIN REACH.
[2024-10-06 05:48] LABS: BAND PERCENT MAN 1 % (0-8); BASOPHILS ABSOLUTE MAN 0.43 K/mm3 (0.00-0.23); BASOPHILS PERCENT MAN 2 % (0-2); EOSINOPHILS ABSOLUTE MAN 0.86 K/mm3 (0.00-0.68); EOSINOPHILS PERCENT MAN 4 % (0-6); LYMPHOCYTES % ATYPICAL MANUAL 1 % (0-0); LYMPHOCYTES ABSOLUTE MAN 5.41 K/mm3 (0.84-5.20); LYMPHOCYTES PERCENT MAN 24 % (21-46); METAMYELOCYTE ABSOLUTE MAN 0.21 K/mm3 (0.00-0.00); METAMYELOCYTE PERCENT MAN 1 % (0-0); MONOCYTES ABSOLUTE MAN 1.51 K/mm3 (0.16-1.47); MONOCYTES PERCENT MAN 7 % (4-13); MYELOCYTE ABSOLUTE MAN 0.21 K/mm3 (0.00-0.00); MYELOCYTE PERCENT MAN 1 % (0-0); NEUTROPHILS ABSOLUTE MAN 13.00 K/mm3 (1.96-9.15); SEG NEUTROPHILS PERCENT MAN 59 % (41-73)
[2024-10-06 07:45] VITALS: BP 113/79
[2024-10-06] MEDS ORDERED: Lidocaine 4% 1 Patch TOP SCH (13:35)
[2024-10-06 16:31] VITALS: BP 123/82
--- NOTE | 2024-10-06 17:16 | NUR ---
DAY SUMMARY A&OX4, ANXIOUS, MEDICATED PER MAR FOR PAIN, STATES THE MEDS ARE NOT COVERING PAIN, LIDOCAINE PATCH ADDED THIS SHIFT, REFUSED PT & OT THIS SHIFT, CONTINUES TO [id number] SBA TO BSC, VSS, WILL CONT TO MONITOR.
[2024-10-06 20:50] VITALS: BP 97/81
[2024-10-07 04:29] VITALS: BP 91/64
[2024-10-07 05:04] LABS: BASOPHILS ABSOLUTE AUTO 0.12 K/mm3 (0.00-0.23); BASOPHILS PERCENT AUTO 1 % (0-2); EOSINOPHILS ABSOLUTE AUTO 0.46 K/mm3 (0.00-0.68); EOSINOPHILS PERCENT AUTO 2 % (0-6); Hematocrit 37.9 % (33.0-51.0); Hemoglobin 12.0 g/dL (11.5-16.0); IMMATURE GRAN ABSOLUTE AUTO 0.91 K/mm3 (0.00-0.10); IMMATURE GRAN PERCENT AUTO 4 % (0-1); LYMPHOCYTES ABSOLUTE AUTO 4.73 K/mm3 (0.84-5.20); LYMPHOCYTES PERCENT AUTO 22 % (21-46); MONOCYTES ABSOLUTE AUTO 1.58 K/mm3 (0.16-1.47); MONOCYTES PERCENT AUTO 7 % (4-13); Mean Corpuscular HGB Conc 31.7 g/dL (31.5-36.5); Mean Corpuscular Volume 89 fL (80-100); NEUTROPHILS ABSOLUTE AUTO 13.88 K/mm3 (1.96-9.15); NEUTROPHILS PERCENT AUTO 64 % (41-73); NRBC ABSOLUTE 0.00 K/mm3 (0.00-0.02); NRBC Auto 0.0 /100 WBC (0.0-0.2); Platelet Count 383 K/mm3 (150-400); RDW Coefficient Variation 15.4 % (11.7-14.2); RDW Standard Deviation 49.8 fL (35.1-46.3)
[2024-10-07 05:34] LABS: Anion Gap 7.0 mmol/L (3-11); Blood Urea Nitrogen 21.0 mg/dL (8-24); CO2, Blood 28.0 mmol/L (21-32); Calcium, Blood 8.8 mg/dL (8.5-10.1); Chloride, Blood 100.0 mmol/L (98-108); Creatinine, Blood 0.71 mg/dL (0.40-1.00); Glucose, Blood 243.0 mg/dL (70-99); Potassium, Blood 4.4 mmol/L (3.5-5.5); Sodium, Blood 131.0 mmol/L (136-145)
--- NOTE | 2024-10-07 06:22 | NUR ---
SHIFT SUMMARY PT HERE FOR LOWER LOBE PNA. SHE HAS BEEN AOX4, CALM AND COOPERATIVE. SHE CALLS APPROPRIATELY. SHE [place] BE[place] [facility] [place] HAS C/O PAIN IN R HIP, BACK, AND LEGS, WHICH HAS BEEN RELIEVED W/ REST, REPOSITIONING, AND MEDICATIONS. OTHER THAN PAIN, PT HAS HAD NO COMPLAINTS. SHE HAD UNEVENTFUL EVENING.
[2024-10-07 06:28] VITALS: BP 121/90
[2024-10-07 07:57] VITALS: BP 126/81
--- NOTE | 2024-10-07 11:45 | NUR ---
ASSUMED CARE A/O X 4, PLEASENT AND TALKATIVE. PAIN TO RIGHT LOWER SIDE TREATED PER MAR, ONE PERSON ASSIST TO CHAIR, PT DID VERY WELL AND WILL CALL IF NEEDING ASSISTANCE.
[2024-10-07 16:49] VITALS: BP 117/75
[2024-10-07 20:03] VITALS: BP 105/74
--- NOTE | 2024-10-07 22:16 | NUR ---
PT RETURNED FROM XRAY AT THIS TIME.
[2024-10-08 04:07] VITALS: BP 118/72
[2024-10-08 04:52] LABS: BASOPHILS ABSOLUTE AUTO 0.12 K/mm3 (0.00-0.23); BASOPHILS PERCENT AUTO 1 % (0-2); EOSINOPHILS ABSOLUTE AUTO 0.42 K/mm3 (0.00-0.68); EOSINOPHILS PERCENT AUTO 2 % (0-6); Hematocrit 36.1 % (33.0-51.0); Hemoglobin 11.5 g/dL (11.5-16.0); IMMATURE GRAN ABSOLUTE AUTO 0.90 K/mm3 (0.00-0.10); IMMATURE GRAN PERCENT AUTO 5 % (0-1); LYMPHOCYTES ABSOLUTE AUTO 3.16 K/mm3 (0.84-5.20); LYMPHOCYTES PERCENT AUTO 17 % (21-46); MONOCYTES ABSOLUTE AUTO 1.47 K/mm3 (0.16-1.47); MONOCYTES PERCENT AUTO 8 % (4-13); Mean Corpuscular HGB Conc 31.9 g/dL (31.5-36.5); Mean Corpuscular Volume 89 fL (80-100); NEUTROPHILS ABSOLUTE AUTO 12.07 K/mm3 (1.96-9.15); NEUTROPHILS PERCENT AUTO 67 % (41-73); NRBC ABSOLUTE 0.00 K/mm3 (0.00-0.02); NRBC Auto 0.0 /100 WBC (0.0-0.2); Platelet Count 368 K/mm3 (150-400); RDW Coefficient Variation 15.5 % (11.7-14.2); RDW Standard Deviation 50.6 fL (35.1-46.3)
[2024-10-08 05:18] LABS: Anion Gap 7.0 mmol/L (3-11); Blood Urea Nitrogen 20.0 mg/dL (8-24); CO2, Blood 30.0 mmol/L (21-32); Calcium, Blood 8.5 mg/dL (8.5-10.1); Chloride, Blood 100.0 mmol/L (98-108); Creatinine, Blood 0.72 mg/dL (0.40-1.00); Glucose, Blood 160.0 mg/dL (70-99); Potassium, Blood 4.8 mmol/L (3.5-5.5); Sodium, Blood 132.0 mmol/L (136-145)
--- NOTE | 2024-10-08 05:30 | NUR ---
SHIFT SUMMARY PT IS ALERT AND ORIENTED TIMES 4. PT IS FULL CODE. PT ADMITTED FOR RIGHT SIDED MID AND LOWER LOBE PNEUMONIA. PT HAS RIGHT UPPER POWER GLIDE THAT DOES NOT DRAW.TAKES MEDICATION WHOLE WITH WATER. PT IS SBA TO BEDSIDE COMMODE.. PT ABLE TO MAKE NEEDS KNOWN. PT APPEARED TO SLEEP ON AND OFF THROUGH THE NIGHT. BED IS IN LOW POSITION, RAILS TIMES TWO, AND CALL LIGHT WITHIN REACH.
[2024-10-08 07:30] VITALS: BP 123/77
[2024-10-08 08:32] VITALS: BP 119/83
[2024-10-08] MEDS ORDERED: AMOCLA875 PO (16:48)
[2024-10-08] MEDS ORDERED: DULO30 PO (16:49)
[2024-10-08] MEDS ORDERED: MELO7.5 PO (16:49)
[2024-10-08] MEDS ORDERED: Nicoderm Cq1 EAC1 TOP (16:50)
[2024-10-08] MEDS ORDERED: OMEP20ER PO (16:50)
[2024-10-08] MEDS ORDERED: Ventolin5 MG/1 ML INH (16:52)
[2024-10-08] MEDS ORDERED: VISBIOME 112.51 EACH PO (16:53)
--- NOTE | 2024-10-08 17:57 | NUR ---
DISCHARGE SUMMARY: PT EDUCATION PROVIDED. PT UNRECEPTIVE TO EDUCATION. PT POWERGLIDE PULLED BY CINDY DIEGO. PT WHEELED DOWN TO CAR BY CHILD DEVELOPMENT INSTRUCTOR IN WHEELCHAIR. PT BELONGINGS ALL PACKED UP AND SENT WITH PT.
== END 2024-10-08 17:52 | disposition home health service (06) | DRG 871 ==
LOC: ER 11:00 → MEDS 15:27
PROVIDERS: Emergency Medicine; Family Medicine; Internal Medicine; Internal Medicine Critical Care Medicine; ADMIT Internal Medicine
DX: A41.9 Sepsis, unspecified organism (principal); J18.9 Pneumonia, unspecified organism; J44.1 Chronic obstructive pulmonary disease with (acute) exacerbation; J44.0 Chronic obstructive pulmonary disease with (acute) lower respiratory infection; I50.32 Chronic diastolic (congestive) heart failure; F03.93 Unspecified dementia, unspecified severity, with mood disturbance; F03.94 Unspecified dementia, unspecified severity, with anxiety; G89.4 Chronic pain syndrome; M16.11 Unilateral primary osteoarthritis, right hip; J43.9 Emphysema, unspecified; I11.0 Hypertensive heart disease with heart failure; F17.210 Nicotine dependence, cigarettes, uncomplicated; R73.9 Hyperglycemia, unspecified; Z71.6 Tobacco abuse counseling; Z79.82 Long term (current) use of aspirin; Z98.1 Arthrodesis status
CPT/HCPCS: 0528U; 36415; 71045; 71046; 71260; 73502; 80048; 80053; 82947; 83036; 83605; 84145; 84484; 85025; 85027; 87040; 87449; 93005; 93010; 94640; 94664; 94667; 94668; 94760; 94761; 96365; 96375; 97110; 97112; 97116; 97161; 97165; 97530; 97535; 99285-25; A9270; C1751; J0360; J0456; J0696; J1815; J1885; J2270; J2919; J7030; J7050; J7060; J7512; Q9967

== ENCOUNTER 2024-12-02 15:28 | Inpatient (IN) | payer MEDICARE ==
[~2024-12-02] VITALS: Ht 167.6 cm; Wt 111.3 kg
[~2024-12-02 15:28] MED LIST changes: +AMOCLA875 PO; +DULO30 PO; +IBUP200 PO; +MELO7.5 PO; +Nicoderm Cq1 EAC1 TOP; +OMEP20ER PO; +VISBIOME 112.51 EACH PO; +Ventolin5 MG/1 ML INH
[2024-12-02 16:11] LABS: BASOPHILS ABSOLUTE AUTO 0.10 K/mm3 (0.00-0.23); BASOPHILS PERCENT AUTO 1 % (0-2); EOSINOPHILS ABSOLUTE AUTO 0.34 K/mm3 (0.00-0.68); EOSINOPHILS PERCENT AUTO 2 % (0-6); Hematocrit 37.3 % (33.0-51.0); Hemoglobin 11.2 g/dL (11.5-16.0); IMMATURE GRAN ABSOLUTE AUTO 0.12 K/mm3 (0.00-0.10); IMMATURE GRAN PERCENT AUTO 1 % (0-1); LYMPHOCYTES ABSOLUTE AUTO 3.21 K/mm3 (0.84-5.20); LYMPHOCYTES PERCENT AUTO 20 % (21-46); MONOCYTES ABSOLUTE AUTO 1.30 K/mm3 (0.16-1.47); MONOCYTES PERCENT AUTO 8 % (4-13); Mean Corpuscular HGB Conc 30.0 g/dL (31.5-36.5); Mean Corpuscular Volume 92 fL (80-100); NEUTROPHILS ABSOLUTE AUTO 10.88 K/mm3 (1.96-9.15); NEUTROPHILS PERCENT AUTO 68 % (41-73); NRBC ABSOLUTE 0.00 K/mm3 (0.00-0.02); NRBC Auto 0.0 /100 WBC (0.0-0.2); Platelet Count 464 K/mm3 (150-400); RDW Coefficient Variation 15.0 % (11.7-14.2); RDW Standard Deviation 50.1 fL (35.1-46.3)
[2024-12-02 16:37] LABS: Alanine Aminotransfer (ALT/SGP 15.0 U/L (12-78); Albumin, Blood 3.0 g/dL (3.4-5.0); Albumin/Globulin Ratio 0.6 (0.8-1.8); Anion Gap 6.0 mmol/L (3-11); Aspartate Aminotrans (AST/SGOT 10.0 U/L (12-37); Bilirubin, Total 0.2 mg/dL (0.1-1.0); Blood Urea Nitrogen 28.0 mg/dL (8-24); CO2, Blood 33.0 mmol/L (21-32); Calcium, Blood 9.1 mg/dL (8.5-10.1); Chloride, Blood 100.0 mmol/L (98-108); Creatinine, Blood 0.88 mg/dL (0.40-1.00); Globulin, Blood 4.7 g/dL (2.2-4.0); Glucose, Blood 105.0 mg/dL (70-99); Potassium, Blood 4.2 mmol/L (3.5-5.5); Sodium, Blood 135.0 mmol/L (136-145); Total Protein, Blood 7.7 g/dL (6.4-8.2)
[2024-12-02 16:59] LABS: Influenza A, PCR NEGATIVE (NEGATIVE); Influenza B, PCR NEGATIVE (NEGATIVE); Resp Syncytial Virus, PCR NEGATIVE (NEGATIVE); SARS-Cov-2 (COVID-19) PCR, MMC NEGATIVE (NEGATIVE)
[2024-12-02] MEDS ORDERED: CefTRIAXone Sodium 1,000 MG in NS 50 ML IV ONE (17:15)
[2024-12-02] MEDS ORDERED: Ipratropium/Albuterol SulF 2.5-0.5MG/3 ML Amp INH SCH (19:45)
[2024-12-02] MEDS ORDERED: Ondansetron HCl 2 MG / ML 2ML Vial IV PRN (19:45)
[2024-12-02] MEDS ORDERED: Albuterol 2.5 MG/3 ML VIAL INH PRN (19:45)
[2024-12-02] MEDS ORDERED: OxyCODONE 5 mg/Acetamin 325 mg TABLET PO PRN (19:50)
[2024-12-02] MEDS ORDERED: FLU VACC TS2025(65UP)/MF59C/PF 45 MCG/0.5 ML SYRINGE IM SCH (20:00)
[2024-12-02] MEDS ORDERED: FentaNYL Citrate 50 MCG/ML 2 ML Injection IV ONE (20:00)
[2024-12-02] MEDS ORDERED: Lactobacil 2-S.Thermo-Bifido 1 1 Cap PO SCH (21:00)
[2024-12-02] MEDS ORDERED: OLANZAPINE-FLU1 EAC8 (21:19)
[2024-12-02] MEDS ORDERED: Aspir 8181 MG PO (21:20)
[2024-12-02] MEDS ORDERED: DULO30 PO (21:21)
[2024-12-02] MEDS ORDERED: LISI20 PO (21:21)
[2024-12-02] MEDS ORDERED: AMOX-CLAV 875-1 EAC1 PO (21:22)
[2024-12-02] MEDS ORDERED: MELO7.5 PO (21:22)
[2024-12-02] MEDS ORDERED: OMEP20ER PO (21:23)
[2024-12-02] MEDS ORDERED: Nicoderm Cq1 EAC1 TOP (21:23)
[2024-12-02] MEDS ORDERED: VISBIOME 112.51 EACH PO (21:25)
[2024-12-02 21:41] VITALS: BP 118/104
--- NOTE | 2024-12-02 22:25 | NUR ---
ADMIT NOTE HANDOFF RECEIVED FROM MARKETING PROJECT COORDINATOR DORA. PT ARRIVED TO FLOOR VIA [place] [place]. PERSONAL POSSESSIONS WITH PT. PT ORIENTED TO UNIT. CALL BUTTON WITHIN REACH. TELEMETRY IN PLACE: TACHY @ 100 BPM. 6 LPM O2 VIA NC. SHE WILL BE NPO @ 12 AM.
[2024-12-02] MEDS ORDERED: NS 250 ML IV PRN (23:20)
[2024-12-03] MEDS ORDERED: Ampicillin Sod/Sulbactam Sod 3 GM in NS 100 ML IV SCH
[2024-12-03] MEDS ORDERED: FentaNYL Citrate 50 MCG/ML 2 ML Injection IV PRN (00:50)
[2024-12-03 01:10] VITALS: BP 90/64
[2024-12-03 01:18] VITALS: BP 139/90
--- NOTE | 2024-12-03 03:42 | NUR ---
SHIFT SUMMARY ADMITTED THIS SHIFT FOR DYSPNEA. FULL CODE. IV ANTIB RX ARE SCHEDULED. SHE IS ON 6 LPM O2, 5 LPM O2 IS BASELINE. PUREWICK IN PLACE. TELEMETRY: NSR @ 94 BPM. REGULAR DIET. CHRONIC PAIN SYNDROME IS NOTED. PULMONOLOGY CONSULT IS CARMELO COUGHLIN. 1 ASSIST W/FWW - BSC. RECENT ADMIT ONE MONTH AGO FOR PNEUMONIA, LUNG MASS ALSO NOTED. A&O X3, FORGETFUL AND IMPULSIVE AT TIMES.
[2024-12-03 05:07] LABS: Hematocrit 35.0 % (33.0-51.0); Hemoglobin 10.5 g/dL (11.5-16.0); Mean Corpuscular HGB Conc 30.0 g/dL (31.5-36.5); Mean Corpuscular Volume 92 fL (80-100); NRBC ABSOLUTE 0.00 K/mm3 (0.00-0.02); NRBC Auto 0.0 /100 WBC (0.0-0.2); Platelet Count 388 K/mm3 (150-400); RDW Coefficient Variation 15.2 % (11.7-14.2); RDW Standard Deviation 51.5 fL (35.1-46.3)
[2024-12-03 05:22] LABS: Prothrombin Time Results 11.1 Sec (9.7-11.5)
[2024-12-03 05:41] LABS: Anion Gap 8.0 mmol/L (3-11); Blood Urea Nitrogen 30.0 mg/dL (8-24); CO2, Blood 31.0 mmol/L (21-32); Calcium, Blood 8.5 mg/dL (8.5-10.1); Chloride, Blood 101.0 mmol/L (98-108); Creatinine, Blood 0.86 mg/dL (0.40-1.00); Glucose, Blood 143.0 mg/dL (70-99); Potassium, Blood 4.5 mmol/L (3.5-5.5); Sodium, Blood 135.0 mmol/L (136-145)
[2024-12-03 07:37] VITALS: BP 117/73
[2024-12-03] MEDS ORDERED: DULoxetine HCL 30 MG Cap DR PO SCH (09:00)
[2024-12-03] MEDS ORDERED: Enoxaparin 40 MG/0.4 ML SYR SC SCH (09:00)
[2024-12-03 15:09] VITALS: BP 131/86
--- NOTE | 2024-12-03 18:32 | NUR ---
SHIFT SUMMARY PATIENT ALERT AND INTERACTIVE BUT CONFUSED AT TIMES. PATIENT FOUND FREQUENTLY TO HAVE O2 OFF AND CONTINUOUS BIOX. PATIENT ALSO PULLED IV OUT AT START OF SHIFT BECAUSE SHE DID NOT REALIZE WHAT IT WAS. PATIENT HAVING HEADACHE MOST OF THE DAY MEDICATED PER MAY. DR RHODES CONSULTED AND WANTS COPD TO BE STABILIZED BEFORE DOING ANY PROCEDURES. WOULD LIKE TO BIOPSY LUNG MASS WHEN PATIENT STABLE. FAMILY UPDATED OF PLAN.
[2024-12-03 20:12] VITALS: BP 145/86
[2024-12-03 23:17] VITALS: BP 120/107
[2024-12-04 04:07] VITALS: BP 118/70
--- NOTE | 2024-12-04 04:56 | NUR ---
SHIFT SUMMARY; PATIENT SLEPT IN VERY SHORT INTERVALS, O2 AT 10L THRU HUMIDFIED NC. BY MORNING SHE SEEMS TO BE STAYING DOWN BETTER, USING PUREWICK TO CONTROL URINE IS WORKING TO KEEP HER CALMER. REQUEST TO CHANGE NICOTINE PATCH, HAD TO CALL FOR NEW ORDER.SATS UP TO 97% WHEN ASLEEP. TELE SR 81.
[2024-12-04 08:27] VITALS: BP 118/72
[2024-12-04 11:21] VITALS: BP 107/67
[2024-12-04 14:39] VITALS: BP 137/83
[2024-12-04 19:38] VITALS: BP 110/75
--- NOTE | 2024-12-04 20:02 | NUR ---
SHIFT SUMMARY PATIENT ALERT AND INTERACTIVE BUT CONFUSED AT TIMES AND IMPULSIVE. PATIENT RESTLESS AND ANXIOUS. PATIENT HAVING DIFICULTY GETTING COMFORTABLE. PATIENT MEDICATED FOR ANXIETY AND PAIN PER MAR. O2 CONTINUES TO BE TITRATED DOWN. PATIENT CURRENTLY ON 6L/NC. PATIENT MUCH CALMER AT END OF SHIFT. PATIENT INCONTINENT, ATTENDS AND PUREWICK IN USE.
[2024-12-05 03:02] VITALS: BP 126/82
--- NOTE | 2024-12-05 03:14 | NUR ---
PT SUMMARY: PT IS A0X4 AND ABLE TO MAKE NEEDS KNOWN. PT VOIDS FREQUENTLY AND BECOMES SOB WITH ANY EXCERETION. PUREWIC IN PLACE FOR THAT. PT ON 6 L O2. CONTINOUS PULSE IN PLACE WELL. PT MEDICATED FOR ANXIETY TWICE THIS SHIFT AND MEDICATED FOR PAIN TWICE WELL.
[2024-12-05] MEDS ORDERED: HYDROmorphone HCl/Pf 1MG SYR IV ONE (05:10)
[2024-12-05 05:23] LABS: BASOPHILS ABSOLUTE AUTO 0.05 K/mm3 (0.00-0.23); BASOPHILS PERCENT AUTO 0 % (0-2); EOSINOPHILS ABSOLUTE AUTO 0.07 K/mm3 (0.00-0.68); EOSINOPHILS PERCENT AUTO 1 % (0-6); Hematocrit 32.8 % (33.0-51.0); Hemoglobin 9.9 g/dL (11.5-16.0); IMMATURE GRAN ABSOLUTE AUTO 0.10 K/mm3 (0.00-0.10); IMMATURE GRAN PERCENT AUTO 1 % (0-1); LYMPHOCYTES ABSOLUTE AUTO 1.89 K/mm3 (0.84-5.20); LYMPHOCYTES PERCENT AUTO 15 % (21-46); MONOCYTES ABSOLUTE AUTO 1.13 K/mm3 (0.16-1.47); MONOCYTES PERCENT AUTO 9 % (4-13); Mean Corpuscular HGB Conc 30.2 g/dL (31.5-36.5); Mean Corpuscular Volume 91 fL (80-100); NEUTROPHILS ABSOLUTE AUTO 9.77 K/mm3 (1.96-9.15); NEUTROPHILS PERCENT AUTO 75 % (41-73); NRBC ABSOLUTE 0.00 K/mm3 (0.00-0.02); NRBC Auto 0.0 /100 WBC (0.0-0.2); Platelet Count 379 K/mm3 (150-400); RDW Coefficient Variation 14.5 % (11.7-14.2); RDW Standard Deviation 48.7 fL (35.1-46.3)
[2024-12-05 06:29] LABS: Alanine Aminotransfer (ALT/SGP 14.0 U/L (12-78); Albumin, Blood 2.9 g/dL (3.4-5.0); Albumin/Globulin Ratio 0.7 (0.8-1.8); Anion Gap 5.0 mmol/L (3-11); Aspartate Aminotrans (AST/SGOT 8.0 U/L (12-37); Bilirubin, Total 0.2 mg/dL (0.1-1.0); Blood Urea Nitrogen 22.0 mg/dL (8-24); CO2, Blood 36.0 mmol/L (21-32); Calcium, Blood 8.5 mg/dL (8.5-10.1); Chloride, Blood 95.0 mmol/L (98-108); Creatinine, Blood 0.61 mg/dL (0.40-1.00); Globulin, Blood 4.0 g/dL (2.2-4.0); Glucose, Blood 167.0 mg/dL (70-99); Magnesium, Blood 2.0 mg/dL (1.6-2.4); Phosphorus, Blood 3.0 mg/dL (2.5-4.9); Potassium, Blood 4.1 mmol/L (3.5-5.5); Sodium, Blood 132.0 mmol/L (136-145); Thyroid Stimulating Hormone 0.961 uIU/mL (0.360-4.800); Total Protein, Blood 6.9 g/dL (6.4-8.2)
[2024-12-05 07:11] VITALS: BP 143/92
--- NOTE | 2024-12-05 14:03 | NUR ---
PATIENT WAS TRANSFERRED TO [facility] VIA [facility]. AND RETURNED 13 MINUTES LATER. NO ACUTE CHANGES IN CONDITION NOTED.
[2024-12-05 14:15] VITALS: BP 118/86
[2024-12-05] MEDS ORDERED: HYDROmorphone HCl/Pf 1MG SYR IV PRN (17:30)
--- NOTE | 2024-12-05 19:23 | NUR ---
SHIFT SUMMARY PATIENT LETHARGIC ALTHOUGH INTERACTIVE WHEN IN THE ROOM. CHEST XRAY WAS PERFORMED TODAY AWAITING RESULTS. SPEECH CONSULT MADE DUE TO PATIENT VOMITING AND COUGHING WHILE EATING. PATIENT COMPLAINED OF A HEADACHE THROUGHOUT THE DAY, TYLENOL GIVEN PER EMAR. BED ALARM IS ON, BED IS IN LOWEST POSITION FOR SAFETY. CALL LIGHT IS WITHIN REACH.
[2024-12-05 20:04] VITALS: BP 133/77
[2024-12-06 04:18] VITALS: BP 127/68
--- NOTE | 2024-12-06 07:11 | NUR ---
SHIFT SUMMARY: Pt admitted for dyspnea and is a full code. Is alert and able to make needs known. ADLs have been 1-2 depending on activity. Pain has been managed with PRN medications.
[2024-12-06 07:45] VITALS: BP 127/67
[2024-12-06 08:33] LABS: BASOPHILS ABSOLUTE AUTO 0.05 K/mm3 (0.00-0.23); BASOPHILS PERCENT AUTO 0 % (0-2); EOSINOPHILS ABSOLUTE AUTO 0.03 K/mm3 (0.00-0.68); EOSINOPHILS PERCENT AUTO 0 % (0-6); Hematocrit 34.2 % (33.0-51.0); Hemoglobin 10.5 g/dL (11.5-16.0); IMMATURE GRAN ABSOLUTE AUTO 0.12 K/mm3 (0.00-0.10); IMMATURE GRAN PERCENT AUTO 1 % (0-1); LYMPHOCYTES ABSOLUTE AUTO 1.22 K/mm3 (0.84-5.20); LYMPHOCYTES PERCENT AUTO 8 % (21-46); MONOCYTES ABSOLUTE AUTO 1.24 K/mm3 (0.16-1.47); MONOCYTES PERCENT AUTO 8 % (4-13); Mean Corpuscular HGB Conc 30.7 g/dL (31.5-36.5); Mean Corpuscular Volume 92 fL (80-100); NEUTROPHILS ABSOLUTE AUTO 12.73 K/mm3 (1.96-9.15); NEUTROPHILS PERCENT AUTO 83 % (41-73); NRBC ABSOLUTE 0.00 K/mm3 (0.00-0.02); NRBC Auto 0.0 /100 WBC (0.0-0.2); Platelet Count 351 K/mm3 (150-400); RDW Coefficient Variation 14.6 % (11.7-14.2); RDW Standard Deviation 49.2 fL (35.1-46.3)
[2024-12-06 09:00] LABS: Albumin, Blood 3.0 g/dL (3.4-5.0); Anion Gap 5 mmol/L (3-11); Blood Urea Nitrogen 23 mg/dL (8-24); CO2, Blood 41 mmol/L (21-32); Calcium, Blood 9.1 mg/dL (8.5-10.1); Chloride, Blood 91 mmol/L (98-108); Creatinine, Blood 0.58 mg/dL (0.40-1.00); Glucose, Blood 173 mg/dL (70-99); Phosphorus, Blood 3.2 mg/dL (2.5-4.9); Potassium, Blood 4.5 mmol/L (3.5-5.5); Sodium, Blood 132 mmol/L (136-145)
[2024-12-06 15:19] VITALS: BP 138/94
[2024-12-06 16:04] VITALS: BP 125/77
--- NOTE | 2024-12-06 16:37 | NUR ---
SHIFT SUMMARY/TRANSFER UNABLE TO ASSESS ORIENTATION DUE TO PAIN MEDICATION ALTERING LOC, PT DAZED, CAN HARDLY KEEP EYES OPEN. COOPERATIVE. ON 8L O2 CURRENLTY MAINTAINING APPROX 94%. LUNGS SOUND COURSE AND DIMINISHED. PURE WICK IN PLACE. PER REPORT, TOLERATES ALL MEDICATIONS. BED IN LOWEST POSITION, CALL LIGHT WITHIN REACH.
[2024-12-06 20:48] VITALS: BP 118/75
[2024-12-07 04:03] VITALS: BP 141/83
[2024-12-07 06:06] LABS: BASOPHILS ABSOLUTE AUTO 0.04 K/mm3 (0.00-0.23); BASOPHILS PERCENT AUTO 0 % (0-2); EOSINOPHILS ABSOLUTE AUTO 0.07 K/mm3 (0.00-0.68); EOSINOPHILS PERCENT AUTO 0 % (0-6); Hematocrit 35.2 % (33.0-51.0); Hemoglobin 10.6 g/dL (11.5-16.0); IMMATURE GRAN ABSOLUTE AUTO 0.10 K/mm3 (0.00-0.10); IMMATURE GRAN PERCENT AUTO 1 % (0-1); LYMPHOCYTES ABSOLUTE AUTO 2.10 K/mm3 (0.84-5.20); LYMPHOCYTES PERCENT AUTO 12 % (21-46); MONOCYTES ABSOLUTE AUTO 1.78 K/mm3 (0.16-1.47); MONOCYTES PERCENT AUTO 11 % (4-13); Mean Corpuscular HGB Conc 30.1 g/dL (31.5-36.5); Mean Corpuscular Volume 91 fL (80-100); NEUTROPHILS ABSOLUTE AUTO 12.83 K/mm3 (1.96-9.15); NEUTROPHILS PERCENT AUTO 76 % (41-73); NRBC ABSOLUTE 0.00 K/mm3 (0.00-0.02); NRBC Auto 0.0 /100 WBC (0.0-0.2); Platelet Count 382 K/mm3 (150-400); RDW Coefficient Variation 14.5 % (11.7-14.2); RDW Standard Deviation 48.8 fL (35.1-46.3)
--- NOTE | 2024-12-07 06:18 | NUR ---
SHIFT SUMMARY PT IS ALERT AND ORIENTED TIMES SELF . PT IS FULL CODE. PT ADMITTED FOR DYSPNEA. PT HAS RT FOREARM IV THAT FLUSHES. PT IS ON 6L O2. PT HAS PUREWICKING SYSTEM IN PLACE. HX OF COPD, ANXIETY DISORDER, CHRONIC PAIN DISORDER, HTN,HLD. PT HAS LUNG CANCER WITH LARGE MASS IN RIGHT UPPER LOBE. PT IS COOPERATIVE WITH CARE AND ABLE TO MAKE NEEDS KNOWN. BED IS AT LOW POSITION, RAILS TIMES TWO, AND CALL LIGHT WITHIN REACH.
[2024-12-07 06:39] LABS: Albumin, Blood 3.1 g/dL (3.4-5.0); Anion Gap 3 mmol/L (3-11); Blood Urea Nitrogen 26 mg/dL (8-24); CO2, Blood 41 mmol/L (21-32); Calcium, Blood 9.3 mg/dL (8.5-10.1); Chloride, Blood 90 mmol/L (98-108); Creatinine, Blood 0.51 mg/dL (0.40-1.00); Glucose, Blood 130 mg/dL (70-99); Phosphorus, Blood 3.0 mg/dL (2.5-4.9); Potassium, Blood 4.4 mmol/L (3.5-5.5); Sodium, Blood 130 mmol/L (136-145)
[2024-12-07 07:24] VITALS: BP 124/70
--- NOTE | 2024-12-07 10:15 | NUR ---
IN TO SEE PATIENT DECREASED O2TO 5 LITERS.VERY MD WILL DO BIOPSY OF LUNG TOMORROW. SATS ARE NOW92 TO 94 % ON 5 LITERS.
[2024-12-07 11:30] LABS: pH Blood Venous 7.36 (7.34-7.37)
[2024-12-07 13:08] VITALS: BP 147/90
--- NOTE | 2024-12-07 13:39 | NUR ---
PHYSICIAN CONTACT PT REPORTING SUDDEN ONSET OF 7-8/10 PAIN OF HER LEFT ARM FROM THE ELBOW TO THE HAND. DENIES CP/PRESSURE/SOB. DR. LIRA NOTIFIED AND ORDERED TO GIVE TYLENOL IF NOT GIVEN ALREADY. TYLENOL NOT DUE. 0.5 MG OF IV DILADID GIVEN FOR PAIN.
[2024-12-07 14:52] VITALS: BP 130/87
--- NOTE | 2024-12-07 16:03 | NUR ---
SHIFT SUMMARY PT AOX4, COOPERATIVE, ABLE TO MAKE NEEDS KNOWN. PT IS ON 5-8L O2 DEPENDING ON NEEDS. 2 PERSON ASSIST TO RECLINER. UTILIZING PURE WICK CATHETER FOR INCONTINENCE. COMPLAINTS OF PAIN IN BUE, MEDICATING PER EMAR NECESSARY. TOLERATING MEDICATIONS. PT DOES SEEM TO BE SENSITIVE TO NARCOTICS. PT WAS BARELY ABLE TO HOLD EYES OPEN WITH .5MG DILAUDID, CORPORATE RISK ANALYST AWARE, WILL PASS OFF IN REPORT. BED IN LOWEST POSITION, CALL LIGHT WITHIN REACH. LUNG BIOPSY SUPPOSED TO TAKE PLACE TOMORROW.
[2024-12-07] MEDS ORDERED: HYDROmorphone HCl/Pf 1MG SYR IV PRN (17:50)
[2024-12-07 20:29] VITALS: BP 142/90
[2024-12-08 04:30] VITALS: BP 152/89
[2024-12-08 05:51] LABS: BASOPHILS ABSOLUTE AUTO 0.06 K/mm3 (0.00-0.23); BASOPHILS PERCENT AUTO 0 % (0-2); EOSINOPHILS ABSOLUTE AUTO 0.12 K/mm3 (0.00-0.68); EOSINOPHILS PERCENT AUTO 1 % (0-6); Hematocrit 36.4 % (33.0-51.0); Hemoglobin 11.1 g/dL (11.5-16.0); IMMATURE GRAN ABSOLUTE AUTO 0.12 K/mm3 (0.00-0.10); IMMATURE GRAN PERCENT AUTO 1 % (0-1); LYMPHOCYTES ABSOLUTE AUTO 1.88 K/mm3 (0.84-5.20); LYMPHOCYTES PERCENT AUTO 10 % (21-46); MONOCYTES ABSOLUTE AUTO 1.58 K/mm3 (0.16-1.47); MONOCYTES PERCENT AUTO 8 % (4-13); Mean Corpuscular HGB Conc 30.5 g/dL (31.5-36.5); Mean Corpuscular Volume 90 fL (80-100); NEUTROPHILS ABSOLUTE AUTO 15.39 K/mm3 (1.96-9.15); NEUTROPHILS PERCENT AUTO 80 % (41-73); NRBC ABSOLUTE 0.00 K/mm3 (0.00-0.02); NRBC Auto 0.0 /100 WBC (0.0-0.2); Platelet Count 382 K/mm3 (150-400); RDW Coefficient Variation 14.2 % (11.7-14.2); RDW Standard Deviation 46.9 fL (35.1-46.3)
[2024-12-08 06:18] LABS: Albumin, Blood 3.1 g/dL (3.4-5.0); Anion Gap 5 mmol/L (3-11); Blood Urea Nitrogen 18 mg/dL (8-24); CO2, Blood 41 mmol/L (21-32); Calcium, Blood 9.3 mg/dL (8.5-10.1); Chloride, Blood 87 mmol/L (98-108); Creatinine, Blood 0.55 mg/dL (0.40-1.00); Glucose, Blood 180 mg/dL (70-99); Phosphorus, Blood 2.1 mg/dL (2.5-4.9); Potassium, Blood 3.4 mmol/L (3.5-5.5); Sodium, Blood 130 mmol/L (136-145)
[2024-12-08 07:20] VITALS: BP 151/101
[2024-12-08 15:49] VITALS: BP 143/84
--- NOTE | 2024-12-08 18:36 | NUR ---
SHIFT SUMMARY PT IS A/OX3, CONFUSION TO CURRENT SITUTION AT TIMES. IMPULSIVE, REDIRECTABLE, BED/CHAIR ALARM ON. PT IS OFTEN RESTLESS AND WANTING TO MOVE FORM BED TO CHAIR/CHAIR TO BED FREQUENTLY. ON 10L ON CONT PULSE OX. SATS >90%, WITH FREQUENT DESATS WHEN AMBULATING. 1-2 PERSON ASSIST TO BSC/CHAIR. LUNG BIOPSY SCHEDULED FOR TOMORROW AFTERNOON. PT TO BE NPO @ 0800 ON 12/08/24 AND HOLD LOVENOX MORNING OF 12/08/24. PT IS COOPERATIVE WITH CARE AND CALLS APPROPRIATELY USING THE CALL LIGHT.
[2024-12-08 20:06] VITALS: BP 157/97
[2024-12-08] MEDS ORDERED: Potassium Chl 20MEQ/Water100ML 100 ML IV ONE (21:00)
[2024-12-08] MEDS ORDERED: Potassium Chloride 10 Meq Tablet SA PO ONE (21:00)
[2024-12-09 02:48] VITALS: BP 154/92
--- NOTE | 2024-12-09 04:12 | NUR ---
SHIFT SUMMARY 74 YR F ADMITTED ON 12/03/24. FULL CODE. NO ACUTE CHANGES THIS SHIFT. PT IS RESTLESS AND C/O PAIN IN HER NECK AND BACK. MEDICATED PER EMAR. CALLS APPROPRIATELY FOR ASSISTANCE TO BSC. PT WAS ABLE TO SLEEP OFF AND ON BUT USUALLY IT WAS RIGHT AFTER RECEIVING PAIN MEDS. PLAN IS FOR A LUNG BIOPSY TODAY SO LOVENOX WILL BE HELD AND PT WILL BE NPO @ 0800 PER ORDER. BED IS IN LOW POSITION WITH ALARM ON AND CALL LIGHT IS IN REACH. PT IS VERY PLEASANT AND COOPERATIVE WITH THE EXCEPTION OF BEING IMPULSIVE AT TIMES.
[2024-12-09 06:31] LABS: BASOPHILS ABSOLUTE AUTO 0.05 K/mm3 (0.00-0.23); BASOPHILS PERCENT AUTO 0 % (0-2); EOSINOPHILS ABSOLUTE AUTO 0.13 K/mm3 (0.00-0.68); EOSINOPHILS PERCENT AUTO 1 % (0-6); Hematocrit 36.7 % (33.0-51.0); Hemoglobin 11.5 g/dL (11.5-16.0); IMMATURE GRAN ABSOLUTE AUTO 0.09 K/mm3 (0.00-0.10); IMMATURE GRAN PERCENT AUTO 1 % (0-1); LYMPHOCYTES ABSOLUTE AUTO 2.43 K/mm3 (0.84-5.20); LYMPHOCYTES PERCENT AUTO 14 % (21-46); MONOCYTES ABSOLUTE AUTO 1.53 K/mm3 (0.16-1.47); MONOCYTES PERCENT AUTO 9 % (4-13); Mean Corpuscular HGB Conc 31.3 g/dL (31.5-36.5); Mean Corpuscular Volume 88 fL (80-100); NEUTROPHILS ABSOLUTE AUTO 13.10 K/mm3 (1.96-9.15); NEUTROPHILS PERCENT AUTO 76 % (41-73); NRBC ABSOLUTE 0.00 K/mm3 (0.00-0.02); NRBC Auto 0.0 /100 WBC (0.0-0.2); Platelet Count 371 K/mm3 (150-400); RDW Coefficient Variation 14.6 % (11.7-14.2); RDW Standard Deviation 46.6 fL (35.1-46.3)
[2024-12-09 06:45] LABS: Prothrombin Time Results 11.8 Sec (9.7-11.5)
[2024-12-09 06:58] LABS: Alanine Aminotransfer (ALT/SGP 15.0 U/L (12-78); Albumin, Blood 3.0 g/dL (3.4-5.0); Albumin/Globulin Ratio 0.7 (0.8-1.8); Anion Gap 6.0 mmol/L (3-11); Aspartate Aminotrans (AST/SGOT 6.0 U/L (12-37); Bilirubin, Total 0.5 mg/dL (0.1-1.0); Blood Urea Nitrogen 19.0 mg/dL (8-24); CO2, Blood 38.0 mmol/L (21-32); Calcium, Blood 9.2 mg/dL (8.5-10.1); Chloride, Blood 92.0 mmol/L (98-108); Creatinine, Blood 0.62 mg/dL (0.40-1.00); Globulin, Blood 4.2 g/dL (2.2-4.0); Glucose, Blood 132.0 mg/dL (70-99); Magnesium, Blood 2.1 mg/dL (1.6-2.4); Phosphorus, Blood 2.7 mg/dL (2.5-4.9); Potassium, Blood 3.4 mmol/L (3.5-5.5); Sodium, Blood 133.0 mmol/L (136-145); Total Protein, Blood 7.2 g/dL (6.4-8.2)
[2024-12-09 07:30] VITALS: BP 138/82
--- NOTE | 2024-12-09 11:00 | NUR ---
ATTEMPT TO CALL HANDLE LATHE OPERATOR REGARDING INABILITY TO RECIEVE LUNG BIOPSY, UNABLE TO REACH AT THIS TIME. THIS RN NOTIFIED THAT IMAGING SPOKE WITH PHYSICAN.
[2024-12-09 15:55] VITALS: BP 129/71
[2024-12-09] MEDS ORDERED: Potassium Chloride 10 Meq Tablet SA PO SCH (18:00)
--- NOTE | 2024-12-09 19:28 | NUR ---
SHIFT SUMMARY PT IS A/OX4. 1-2 PERSON ASSIST TO BSC/CHAIR. ON 6L NC, SATS MAINTAINING >90% ON CONT PULSE OX. ATTEMPT FOR LUNG BIOPSY TODAY. PT REPORTS SHE IS UNABLE TO LIE FLAT FOR THE PROCEDURE R/T PAIN AND ANXIETY. PHYSICAN AND MILLING MACHINE SET UP OPERATOR NOTIFED. PLAN FOR REPEAT ATTEMPT WITH BIOPSY TOMORROW WITH FENTANYL AND ATIVAN ORDERED TO BE GIVEN PRIOR TO PROCEDURE. PT RECIEVING FENTANYL, DILUADID, AND XANAX PER MAR THIS SHIFT. PT IS COOPERATIVE WITH CARE AND CALLS APPROPRIATELY.
[2024-12-09 19:48] VITALS: BP 157/94
[2024-12-10 04:36] VITALS: BP 120/72
--- NOTE | 2024-12-10 04:42 | NUR ---
SHIFT SUMMARY 74 YR F ADMITTED ON 12/03/24. FULL CODE. NO ACUTE CHANGES THIS SHIFT. PT IS ANXIOUS AT ALL TIMES. SHE CALLS APPROPRIATELY FOR ASSISTANCE AND IS A HEAVY 2 PERSON ASSIST. PLAN IS FOR SECOND ATTEMPT AT A LUNG BIOPSY TODAY. NURSE NOTIFY CALLS FOR FENTANYL AND ATIVAN TO BE GIVEN PRIOR TO PROCEDURE, HOWEVER, THE ORDER FOR ATIVAN WAS NOT PUT IN. SPOKE W/ HOSPITALIST THIS SHIFT AND HE STATED THAT IT WOULD BE BEST FOR DAYSHIFT HOSPITALIST TO BE NOTIFIED REGARDING THE ORDER. PT HAS BEEN NPO SINCE 399.
[2024-12-10 05:52] LABS: Alanine Aminotransfer (ALT/SGP 14.0 U/L (12-78); Albumin, Blood 2.8 g/dL (3.4-5.0); Albumin/Globulin Ratio 0.7 (0.8-1.8); Anion Gap 3.0 mmol/L (3-11); Aspartate Aminotrans (AST/SGOT 6.0 U/L (12-37); Bilirubin, Total 0.3 mg/dL (0.1-1.0); Blood Urea Nitrogen 20.0 mg/dL (8-24); CO2, Blood 39.0 mmol/L (21-32); Calcium, Blood 8.8 mg/dL (8.5-10.1); Chloride, Blood 96.0 mmol/L (98-108); Creatinine, Blood 0.64 mg/dL (0.40-1.00); Globulin, Blood 3.8 g/dL (2.2-4.0); Glucose, Blood 130.0 mg/dL (70-99); Magnesium, Blood 2.0 mg/dL (1.6-2.4); Potassium, Blood 3.4 mmol/L (3.5-5.5); Sodium, Blood 135.0 mmol/L (136-145); Total Protein, Blood 6.6 g/dL (6.4-8.2)
[2024-12-10 07:10] VITALS: BP 130/83
[2024-12-10] MEDS ORDERED: LORazepam 2 MG/ML 1ML Injection IV PRN ×2 (07:55→18:25)
--- NOTE | 2024-12-10 07:55 | NUR ---
CALLED DR GOMEZ- PT HAS A PLANNED LUNG BIOPSY TODAY. SPOKE TO ABOUT MANAGING THE PT ANXIETY WELL HELPING HER WITH COUGH WHEN SHE HOLDS HER BREATH, AND PAIN. ORDER RECIEVED TO CALL RT TO ADMINISTER A BREATHING Tx MEDICATE WITH IV FENTANYL 50MCG AND IV ATIVAN 1MG PRIOR TO THE PROCEDURE. CALLED MAHIN GRACE TO DISCUSS THE PLAN TO MAKE THE BIOPSY MORE SUCCESSFUL, SHE WILL SPEAK TO THE RADIOLOGIST WHEN THEY ARRIVE. AWAITING FURTHER COMMUNICATION FROM IMAGING TO [place] OR NOT THE PROCEDURE WILL BE REATTEMPTED AND WHEN.
--- NOTE | 2024-12-10 12:40 | NUR ---
CALLED DR GOMEZ- RECIEVED AND RECIEVED A VERBAL OK TO GIVE 50MCG OF FENTANYL A PRE PROCEDURE DOSE, SO SHE MIGHT TOLLERATE THE CT SCAN.
[2024-12-10 15:59] VITALS: BP 131/78
[2024-12-10 16:33] VITALS: BP 148/79
[2024-12-10 16:36] LABS: pH Blood Venous 7.48 (7.34-7.37)
--- NOTE | 2024-12-10 16:57 | NUR ---
SHIFT SUMMARY- PT HAS HAD INCREASED WOB T/O THE SHIFT. SHE STARTED THE DAY WANTING TO GET UP TO GO TO THE BATHROOM, AND HAVING SOME URGENCY AND FREQUENCY, HER WOB WAS STABLE UNTIL AROUND 10 THEN SHE BECAME PAINFULL CAUSING HER TO BEAR DOWN AND HAVE GRUNTING RESPIRATIONS. MEDICATED WITH PO OXY PRIOR WITH NO EFFECT, IV FENTANYL WORKED BUT DID NOT LAST VERY LONG. RECIEVED A OT ORDER FOR IV ATIVAN AND IV FENTANYL TO BE GIVEN EARLY FOR THE PT TO TOLLERATE THE CT SCAN. POST CT SCAN HER RESP MRATE WAS MORE RELAXED AND SHE STATED HER ANXIETY AND PAIN WERE "WAY BETTER!" AT 1400 THE PT WAS NOTED TO HAVE INCREASED RESP RATE AND LUNG SOUNDS WERE MORE MOIST SOUNDING. PT DID NOT APPEAR TO BE IN DISTRESS. DR CAME TO SEE THE PT HR WAS NOW ELEVATED 110'S ON BIOX. RESP RATE 28, COARSE CRACKLES DIM BASES WITH WHEEZES IN THE UPPER LOBES. DR AWARE. ORDER FOR TELE, BIPAP NOT PRESENT IN THE ROOM. BIPAP WAS SET UP, 2 VIEW CHEST XR ORDERED WELL STAT VBG AND BNP. PT WENT FOR STAT XR, THEN WAS PLACED ON TELE, THEN HAD LABS DRAWN FOR VBG AND BNP. RT SET UP BIPAP AND PLACED THE MASK. PT REMOVED THE MASK BEFORE RT WAS FINISHED UPDATING THE RN. PT SAID SHE WILL WEAR IT WHEN HER SISTER IS HERE BECAUSE SHE WILL "FOR SURE MAKE ME WEAR IT."
[2024-12-10 18:49] VITALS: BP 127/85
[2024-12-10 19:30] VITALS: BP 133/90
--- NOTE | 2024-12-10 19:30 | NUR ---
TRANSFER NOTE- PT TRANSFERED TO PCU 3. PER DR Dean (PULMONOLOGY) AND DR GOMEZ THE PT IS TO WEAR BIPAP CONTINUIOUSLY, WITH BREAKS FOR BATHROOM NEEDS AND FOOD. PT HAS AN ORDER FOR IV ATIVAN PRN Q6 ONLY IF SHE IS WILLING TO WEAR THE BIPAP THIS MED IS TO HELP HER TOLLERATE THE MASK.
--- NOTE | 2024-12-10 19:40 | NUR ---
TRANSFER NOTE: RECIEVED REPORT FROM MARTINA Salcedo RN MEDICAL FLOOR FOR INCREASED PATIENT MONITORING WITH RESPIRATORY HYPOXIC FAILURE. PATIENT IN THE UNIT NEW IV ESTABLISHED. ANTIBIOTICS PENDING FROM 1800. PATIENT ALERT AND ORIENTED X 3-4, DENIES PAIN. PATIENT ABLE TO MOVE EXTREMES, DENIES CHEST PAIN PRESSURE, BUT APPEARS TO BE MILD SOB AT RSET, HOWEVER SPO2 >94% AT 4.5L AND REPORTED BL OF 5L. VSS AFEBRILE FOR THIS RN. EDUCATED PATIENT ON PRN MEDCIATIONS AND NEED FOR BIPAP. NIGHT RN REPORT GIVEN, NO ACUTE CONCERNS AT THIS TIME.
[2024-12-11] VITALS (7 sets, daily range): BP systolic 103–142; BP diastolic 69–96
--- NOTE | 2024-12-11 06:08 | NUR ---
SHIFT SUMMARY PT A&O X3-4, HX OF DEMENTIA. BED ALARM ON FOR PRECAUTION. HR IN THE 90'S, SR. SHE DENIES ANY CP/PRESSURE, NUMB/TINGLING, SBP STABLE. PT WAS ON 3.5L VIA NC AT START OF SHIFT, SpO2 >92%. BASELINE O2 OF 5L. PLACED ON BIPAP 10/5 W/ 2L BLEED IN AFTER MEDICATION PASS. MEDICATED PT WITH PRN ATIVAN TO TOLERATE. PT HAS BEEN ON BIPAP MOST OF NIGHT, TOLERATING WELL. RR RANGING FROM 20-24, PT DOES NOT APPEAR TO BE IN ANY RESPIRATORY DISTRESS. PT WITH CHRONIC PAIN OF THE BACK/LEGS, MEDICATED PER EMAR. PUREWICK IN PLACE AND BRIEF, PER PT INCONTINENT OF URINE AT BL. PT RESTING IN BED AT THIS TIME. CALL LIGHT IN REACH. WILL MONITOR PT AND REPORT TO ONCOMING RN.
[2024-12-11 06:46] LABS: Alanine Aminotransfer (ALT/SGP 12.0 U/L (12-78); Albumin, Blood 2.7 g/dL (3.4-5.0); Albumin/Globulin Ratio 0.7 (0.8-1.8); Anion Gap 8.0 mmol/L (3-11); Aspartate Aminotrans (AST/SGOT 5.0 U/L (12-37); Bilirubin, Total 0.2 mg/dL (0.1-1.0); Blood Urea Nitrogen 18.0 mg/dL (8-24); CO2, Blood 33.0 mmol/L (21-32); Calcium, Blood 8.7 mg/dL (8.5-10.1); Chloride, Blood 97.0 mmol/L (98-108); Creatinine, Blood 0.6 mg/dL (0.40-1.00); Globulin, Blood 3.8 g/dL (2.2-4.0); Glucose, Blood 150.0 mg/dL (70-99); Magnesium, Blood 2.0 mg/dL (1.6-2.4); Potassium, Blood 3.4 mmol/L (3.5-5.5); Sodium, Blood 135.0 mmol/L (136-145); Total Protein, Blood 6.5 g/dL (6.4-8.2)
[2024-12-11 10:37] LABS: BASOPHILS ABSOLUTE AUTO 0.06 K/mm3 (0.00-0.23); BASOPHILS PERCENT AUTO 0 % (0-2); EOSINOPHILS ABSOLUTE AUTO 0.31 K/mm3 (0.00-0.68); EOSINOPHILS PERCENT AUTO 2 % (0-6); Hematocrit 36.3 % (33.0-51.0); Hemoglobin 11.1 g/dL (11.5-16.0); IMMATURE GRAN ABSOLUTE AUTO 0.18 K/mm3 (0.00-0.10); IMMATURE GRAN PERCENT AUTO 1 % (0-1); LYMPHOCYTES ABSOLUTE AUTO 2.01 K/mm3 (0.84-5.20); LYMPHOCYTES PERCENT AUTO 10 % (21-46); MONOCYTES ABSOLUTE AUTO 1.93 K/mm3 (0.16-1.47); MONOCYTES PERCENT AUTO 10 % (4-13); Mean Corpuscular HGB Conc 30.6 g/dL (31.5-36.5); Mean Corpuscular Volume 90 fL (80-100); NEUTROPHILS ABSOLUTE AUTO 15.77 K/mm3 (1.96-9.15); NEUTROPHILS PERCENT AUTO 78 % (41-73); NRBC ABSOLUTE 0.00 K/mm3 (0.00-0.02); NRBC Auto 0.0 /100 WBC (0.0-0.2); Platelet Count 366 K/mm3 (150-400); RDW Coefficient Variation 14.9 % (11.7-14.2); RDW Standard Deviation 48.8 fL (35.1-46.3)
[2024-12-11] MEDS ORDERED: Potassium Chl 20MEQ/Water100ML 100 ML IV STA (11:21)
[2024-12-11] MEDS ORDERED: Piperacillin/Tazobactam Sod 3.375 GM in NS 100 ML IV SCH (16:00)
--- NOTE | 2024-12-11 18:26 | NUR ---
END OF SHIFT: ASSUMED CARE OF PT 0700. REMOVED BIPAP PER PT REQUEST; WORN THROUGHOUT THE NIGHT PER NOC SHIFT. PT REPORTED 9/10 PAIN, SEE MAR ASSOICATED DOCUMENATION. VSS ON 3.5LPM O2 VIA NC FOR DURATION OF SHIFT. PRESENTED TO BEDSIDE MID MORNING- HEALTH CONDITIONS AND PROGNOSIS REVIEWED WITH PT AND FAMILY. CODE STATUS CHANGED TO DNR. PT TO DC HOME ON HOSPICE. PT AND FAMILY EMOTIONAL POST CONVERSATION WITH MD R/T CODE STATUS CHANGE AND TERMINAL PROGNOSES. SUCCESSFUL EMOTIONAL SUPPORT PROVIDED TO PT AND FAMILY BY RN. PT NAPPED IN AFTERNOON- REFUSED BIPAP; EDU PROVIDED, REINFORCEMENT NEEDED. PLAN TO DC HOME ON HOSPICE 12/12/24. PT RESTING COMFORTABLY IN BED WITH EYES CLOSED; CALL LIGHT WITHIN REACH. WILL REPORT TO NOC SHIFT.
[2024-12-12 03:47] VITALS: BP 121/84
--- NOTE | 2024-12-12 04:42 | NUR ---
SHIFT SUMMARY PT A&O X4, FORGETFUL AT TIMES BUT ANSWERS QUESTIONS APPROPRIATELY. VSS, AFEBRILE, SPO2 >92% ON 3.5L O2 NC. PT REFUSES TO WEAR BIPAP WHILE ASLEEP. PAIN MEDICATED PER EMAR. CALL LIGHT IN REACH, BREATHING IS EVEN AND UNLABORED.
[2024-12-12] MEDS ORDERED: Polyethylene Glycol 3350 17 gm PO SCH (09:00)
[2024-12-12 09:05] VITALS: BP 135/86
[2024-12-12 11:25] VITALS: BP 130/88
[2024-12-12] MEDS ORDERED: OXAYDO5 M1 PO (12:01)
[2024-12-12] MEDS ORDERED: PRED20 PO (12:03)
[2024-12-12] MEDS ORDERED: CLON1 PO (12:04)
--- NOTE | 2024-12-12 12:44 | NUR ---
DISCHARGE SUMMARY THE PT HAS BEEN A&OX3, AND ANXIOUS T/O THE SHIFT. DR. VACA INCREASED THE PT'S HOME PO ANXIETY MEDICATIONS. THE PT HAS BEEN C/O PAIN IN HER BACK, RIGHT HIP, AND A HEADACHE. MEDICATIONS HAVE BEEN GIVEN PER EMAR. CASE MANGEMENT DISCUSSED PAIN AND ANXIETY WITH PT'S [facility] HOSPICE NURSE. THE PT HAS BEEN ON 3.5L T/O THE DAY. INCREASED WOB, WORSE WHEN HAVING ANXIETY. THE PT'S SISTER WAS AT BEDSIDE AND ABLE TO HELP CALM THE PT DOWN. THE PT OPTED TO HAVE A PARK FOR DISCHARGE WITH HOSPICE. 14FR PLACED WITH STERILE TECNIQUE FROM [facility]. CATHETER CARE, AND BAG CARE EDUCATION WERE PROVIDED TO THE PT AND HER SISTER. PRINTED INSTUCTIONS GIVEN WELL. ALL IV'S WERE DISCHARGED. VITALS REAMINED STABLE T/O THE MORNING. ALL BELONGINGS AND THE PT'S PHONE AND DENTURES WERE SENT WITH THE PT AT DISCHARGE. [facility] THE PT [place] 1200. SISTER WAS AT BEDSIDE DURING DISCHARGE. NO FURTHER NOTES.
== END 2024-12-12 12:10 | disposition hospice, home (50) | DRG 180 ==
LOC: ER 15:28 → ERHOLD 15:29 → MEDS 15:29 → ERHOLD 15:29 → MEDS 21:30 → PCU 12-10 18:43
PROVIDERS: Emergency Medicine; Family Medicine; Hospitalist; Internal Medicine Critical Care Medicine; Internal Medicine Endocrinology, Diabetes & Metabolism; Nurse Practitioner Acute Care; ADMIT Internal Medicine
PROC: 3E02340 Introduction of Influenza Vaccine into Muscle, Percutaneous Approach (ICD-10-PCS; 2024-12-02)
PROC: 3E03329 Introduction of Other Anti-infective into Peripheral Vein, Percutaneous Approach (ICD-10-PCS; 2024-12-03)
PROC: 5A09357 Assistance with Respiratory Ventilation, Less than 24 Consecutive Hours, Continuous Positive Airway Pressure (ICD-10-PCS; principal; 2024-12-08)
DX: C34.11 Malignant neoplasm of upper lobe, right bronchus or lung (principal); J18.9 Pneumonia, unspecified organism; J96.22 Acute and chronic respiratory failure with hypercapnia; J96.21 Acute and chronic respiratory failure with hypoxia; E87.1 Hypo-osmolality and hyponatremia; F03.93 Unspecified dementia, unspecified severity, with mood disturbance; F03.94 Unspecified dementia, unspecified severity, with anxiety; J44.1 Chronic obstructive pulmonary disease with (acute) exacerbation; J44.0 Chronic obstructive pulmonary disease with (acute) lower respiratory infection; Z66 Do not resuscitate; I11.0 Hypertensive heart disease with heart failure; I50.9 Heart failure, unspecified; G89.4 Chronic pain syndrome; E78.5 Hyperlipidemia, unspecified; F17.210 Nicotine dependence, cigarettes, uncomplicated; M19.90 Unspecified osteoarthritis, unspecified site; D72.829 Elevated white blood cell count, unspecified; D64.9 Anemia, unspecified; F12.90 Cannabis use, unspecified, uncomplicated; E66.01 Morbid (severe) obesity due to excess calories; R51.9 Headache, unspecified; J43.9 Emphysema, unspecified; E87.6 Hypokalemia; I71.43 Infrarenal abdominal aortic aneurysm, without rupture; Z98.1 Arthrodesis status; Z98.51 Tubal ligation status; Z71.6 Tobacco abuse counseling; Z86.19 Personal history of other infectious and parasitic diseases; Z99.81 Dependence on supplemental oxygen; Z79.899 Other long term (current) drug therapy; Z79.82 Long term (current) use of aspirin; Z79.2 Long term (current) use of antibiotics; Z79.51 Long term (current) use of inhaled steroids; Z68.27 Body mass index [BMI] 27.0-27.9, adult
CPT/HCPCS: 36415; 51702; 51703; 71045; 71046; 71260; 74177; 80048; 80053; 80069; 82803; 82947; 83605; 83735; 83880; 84100; 84145; 84443; 84484; 85025; 85027; 85610; 85730; 87040; 87637; 92610; 93005; 93010; 94640; 94660; 94664; 94762; 96365; 96366; 96372; 96375; 96376; 99285-25; A9270; G0378; J0295; J0456; J0696; J1171; J1650; J2060; J2405; J2543; J3010; J3480; J7050; J7512; Q9967

== ENCOUNTER 2024-12-16 08:24 | Observation (INO) | payer MEDICARE ==
[~2024-12-16] VITALS: Ht 172.7 cm; Wt 105.6 kg
[~2024-12-16 08:24] MED LIST changes: +AMOX-CLAV 875-1 EAC1 PO; +Aspir 8181 MG PO; +CLON1 PO; +LISI20 PO; +OLANZAPINE-FLU1 EAC8; +OXAYDO5 M1 PO; +PRED20 PO
[2024-12-16] MEDS ORDERED: Morphine Sulfate 20 MG/1ML 1 ML Oral Syringe SL PRN ×2 (12:35→20:00)
[2024-12-16 18:14] VITALS: BP 108/64
[2024-12-16] MEDS ORDERED: Ondansetron HCl 2 MG / ML 2ML Vial IV PRN (19:55)
[2024-12-16] MEDS ORDERED: LORazepam 2 MG/ML 1ML Injection IV PRN (20:00)
[2024-12-16] MEDS ORDERED: Morphine Sulfate 10 MG/ML 1MLSYR IV PRN (20:00)
--- NOTE | 2024-12-17 05:21 | NUR ---
PT HAS C/0 PAIN AND CRIED OUT T/O THE SHIFT. MEDICATION GIVEN RX.
[2024-12-17] MEDS ORDERED: Atropine Sulfate 1% Opth Soln 2ML BTL SL PRN (15:50)
--- NOTE | 2024-12-17 18:56 | NUR ---
SUMMARY- PT'S RR 32 THIS AM, APPEARED RESLESS AND FIDGITY. BEGAN MEDICATING WITH IV MORPHINE AND IV ATIVAN PRN, PT MAYNOR TO RELAX AND RR DOWN 20'S. LG AMOUNT OF MOIST SECRETIONS, DEEP YANKAUR SUCTIONED. USING SCOPOLOMINE PATCH AND STARTED ATROPINE. PT TURNED Q2, PUREWICK IN USE. OXYGEN 4L FOR COMFORT. FAMILY IN/OUT ALL DAY VISITING. TO CALL SON FOR CHANGES IN CONDITION IF PT KNOWN TO BE CLOSE TO . CALLED TO NOTIFY THAT PT WAS SHOWING SIGNS OF DECLINE AROUND 1600, [facility] FAMILY VISITORS. WILL REORT TO NOC RN
--- NOTE | 2024-12-18 03:54 | NUR ---
PT TOD 0040. PRONOUNCED BY MYSELF AND MILAGRO DUMONT RN. IMAGERY ANALYST, BACK UP WORKER, AND HOSPITALIST NOTIFIED. SON AND DAUGHTER AT BEDSIDE. DAUGHTER ABLE TO TAKE HOME LOCKS OF HAIR FOR MEMORY. SON AND DAUGHTER TOOK 1 BRACELET EACH FROM PT. TWO RINGS LEFT ON PT. SEE FINAL DISCHARGE FOR DETAILS. LFA IV AND PARK REMOVED. PT PICKED UP BY [facility] FROM [facility]. SEE FINAL DISCHARGE FOR DETAILS.
== END 2024-12-18 00:40 ==
LOC: ER 08:24 → MEDS 08:25
PROVIDERS: ADMIT Internal Medicine
DX: J96.22 Acute and chronic respiratory failure with hypercapnia (principal); J96.21 Acute and chronic respiratory failure with hypoxia; R62.7 Adult failure to thrive; Z66 Do not resuscitate; I71.43 Infrarenal abdominal aortic aneurysm, without rupture; J18.8 Other pneumonia, unspecified organism; R91.8 Other nonspecific abnormal finding of lung field; E78.5 Hyperlipidemia, unspecified; E66.01 Morbid (severe) obesity due to excess calories; F17.210 Nicotine dependence, cigarettes, uncomplicated; G47.33 Obstructive sleep apnea (adult) (pediatric); G89.4 Chronic pain syndrome; I11.0 Hypertensive heart disease with heart failure; I50.30 Unspecified diastolic (congestive) heart failure; Z68.34 Body mass index [BMI] 34.0-34.9, adult; Z79.1 Long term (current) use of non-steroidal anti-inflammatories (NSAID); Z79.82 Long term (current) use of aspirin; Z79.891 Long term (current) use of opiate analgesic; Z79.899 Other long term (current) drug therapy; Z98.1 Arthrodesis status
CPT/HCPCS: 51702; 82947; 96374; 96374-59; 96375; 96376; 96376-59; 99285-25; A9270; G0378; J2060; J2270